=== PATIENT | female | born 1970 | race Caucasian/White ===

== ENCOUNTER 2016-07-30 11:40 | Emergency (ER) | payer SELFPAY ==
--- NOTE | 2016-07-30 12:22 | ER Document Report ---
HPI - HPI Patient complains to provider of: right wrist pain Onset: Other - one month Onset/Duration: Persistent Quality of pain: Achy Severity: Moderate Pain Level: 3 Context: Patient presents to the emergency department with complaints of right wrist pain for the past month. She denies trauma. She is right hand dominant. She denies other symptoms such as fever vomiting diarrhea. Patient also has high blood pressure 209/93. Patient reports she does not believe in taking medications. She reports she's been told by numerous providers that she has high blood pressure but she will not take medications. Patient also reports she's been told she is a diabetic but she doesn't believe that either. Patient has a dark mole on the right side of her face on her cheek. Patient reports change in shape and color within the last 2 years but she is not interested in talking about that either. She reports she's taken Tylenol for her wrist pain and nothing helps. Associated Symptoms: None Exacerbated by: Denies Relieved by: Denies Similar symptoms previously: No Recently seen / treated by doctor: No - REPRODUCTIVE Reproductive: DENIES: : Past Medical History - General Information source: Patient Last Menstrual Period: 07/26/16 - Social History Smoking Status: Current Every Day Smoker Cigarette use (# per day): Yes - 2 ppd Chew tobacco use (# tins/day): No Frequency of alcohol use: None Drug Abuse: None Family History: Arthritis, CAD, CVA, DM, Hyperlipidemia, Hypertension, Malignancy, Thyroid Disfunction - Past Medical History Cardiac Medical History: Reports: Hx Hypertension - no meds states she has medicines but refuses to take them Pulmonary Medical History: Reports: Hx Asthma, Hx Bronchitis, Hx Pneumonia Endocrine Medical History: Reports: Hx Diabetes Mellitus Type 2 - no meds Musculoskeltal Medical History: Reports Hx Musculoskeletal Deformity, Reports Hx Musculoskeletal Trauma Past Surgical History: Reports: Hx Cholecystectomy - Immunizations Immunizations up to date: Yes Hx Diphtheria, Pertussis, Tetanus Vaccination: Yes Vertical Provider Document - CONSTITUTIONAL Agree With Documented VS: Yes Exam Limitations: No Limitations General Appearance: WD/WN, No Apparent Distress - INFECTION CONTROL TRAVEL OUTSIDE OF THE [place] IN LAST 30 DAYS: No - HEENT HEENT: Atraumatic, Normocephalic - NECK Neck: Normal Inspection, Supple. negative: Lymphadenopathy-Left, Lymphadenopathy-Right - RESPIRATORY Respiratory: Breath Sounds Normal, No Respiratory Distress O2 Sat by Pulse Oximetry: 96 - CARDIOVASCULAR Cardiovascular: Regular Rate - MUSCULOSKELETAL/EXTREMETIES Musculoskeletal/Extremeties: MAEW, FROM, Tender - right wrist ttp, no obvious deformity no swelling good radial pulse good cap refill full range of motion - neg tinels - NEURO Level of Consciousness: Awake, Alert, Appropriate Motor/Sensory: No Motor Deficit - DERM Integumentary: Warm, Dry Adult Front & Back Diagram: 1 - c/o pain Course - Re-evaluation Re-evalutation: 07/30/16 12:23 Patient educated on risk of high blood pressure. She is not interested in talking about it. Will give her written information on discharge - Vital Signs Vital signs: Temp Pulse Resp BP Pulse Ox 97.7 F 91 20 209/93 H 96 07/30/16 12:05 07/30/16 12:05 07/30/16 12:05 07/30/16 12:05 07/30/16 12:05 - Diagnostic Test Radiology reviewed: Image reviewed, Reports reviewed - neg Discharge - Discharge Clinical Impression: elevated blood pressure Wrist pain Qualifiers: Laterality: right Qualified Code(s): M25.531 - Pain in right wrist Disposition: HOME, SELF-CARE Instructions: High Blood Pressure ([facility]), Use of Ldxs-Tmq-Ginfmzu Ibuprofen ([facility] ), Ice Packs ([facility]), [facility] Additional Instructions: *You have been evaluated for wrist pain, elevated blood pressure *Take ibuprofen as indicated *Rest/Ice/Elevate the wrist *Follow up with orthopedics for continued wrist pain-call for an appointment *Follow up with a provider within one week to discuss and evaluate your high blood pressure, recheck your wrist *Return to ED for worsening condition, changes, needs Forms: Elevated Blood Pressure, Smoking Cessation Education
[2016-07-30 13:21] VITALS: BP 189/95
== END 2016-07-30 13:00 | disposition home or self-care (01) ==
LOC: ER 11:40
DX: M25.531 Pain in right wrist (principal); I10 Essential (primary) hypertension; F17.210 Nicotine dependence, cigarettes, uncomplicated; E11.9 Type 2 diabetes mellitus without complications; Z90.49 Acquired absence of other specified parts of digestive tract
CPT/HCPCS: 99283

== ENCOUNTER 2016-11-05 11:15 | Observation (INO) | payer SELFPAY ==
[2016-11-05] MEDS ORDERED: ASPIRIN 325 MG TABLET PO ONE (12:03)
--- NOTE | 2016-11-05 12:05 | ER Document Report ---
ED Medical Screen (RME) - General Chief Complaint: Chest Pain Stated Complaint: CHEST PAIN Time Seen by Provider: 11/05/16 12:02 Mode of Arrival: Ambulatory Information source: Patient - Pt. with onset of CP yesterday and continuing into today with numbness in L arm TRAVEL OUTSIDE OF THE [place] IN LAST 30 DAYS: No - Related Data Allergies/Adverse Reactions: No Known Allergies Allergy (Verified 11/05/16 11:37) Past Medical History - Past Medical History Cardiac Medical History: Reports: Hx Hypertension - no meds states she has medicines but refuses to take them Pulmonary Medical History: Reports: Hx Asthma, Hx Bronchitis, Hx Pneumonia Endocrine Medical History: Reports: Hx Diabetes Mellitus Type 2 - no meds Renal/ Medical History: Denies: Hx Peritoneal Dialysis Musculoskeltal Medical History: Reports Hx Musculoskeletal Deformity, Reports Hx Musculoskeletal Trauma Past Surgical History: Reports: Hx Cholecystectomy - Immunizations Immunizations up to date: Yes Hx Diphtheria, Pertussis, Tetanus Vaccination: Yes Physical Exam - Vital signs Vitals: Temp Pulse Resp BP Pulse Ox 98.2 F 107 H 20 177/90 H 95 11/05/16 11:37 11/05/16 11:37 11/05/16 11:37 11/05/16 11:37 11/05/16 11:37 Course - Vital Signs Vital signs: Temp Pulse Resp BP Pulse Ox 98.2 F 107 H 20 177/90 H 95 11/05/16 11:37 11/05/16 11:37 11/05/16 11:37 11/05/16 11:37 11/05/16 11:37
[2016-11-05 12:52] LABS: ABSOLUTE BASOPHILS # (AUTO) 0.1 10^3/uL (0.0-0.2); ABSOLUTE EOSINOPHILS # (AUTO) 0.1 10^3/uL (0.0-0.6); ABSOLUTE LYMPHOCYTES (AUTO) 2.3 10^3/uL (0.5-4.7); ABSOLUTE MONOCYTES (AUTO) 0.7 10^3/uL (0.1-1.4); ABSOLUTE NEUT (AUTO) 7.9 10^3/uL (1.7-8.2); BASOPHILS % (AUTO) 0.8 % (0-2); HEMATOCRIT 43.8 % (36.0-47.0); HEMOGLOBIN 15.2 g/dL (12.0-15.5); HGB HCT DIFFERENCE 1.8; LYMPHOCYTES % (AUTO) 20.6 % (13-45); MEAN CORPUSCULAR HEMOGLOBIN 28.6 pg (27.0-33.4); MEAN CORPUSCULAR HGB CONC 34.8 g/dL (32.0-36.0); MEAN CORPUSCULAR VOLUME 82 fl (80-97); MONOCYTES % (AUTO) 6.4 % (3-13); RED BLOOD COUNT 5.32 10^6/uL (3.72-5.28); SEGMENTED NEUTROPHILS % (AUTO) 71.2 % (42-78); WHITE BLOOD COUNT 11.1 10^3/uL (4.0-10.5)
[2016-11-05 13:07] LABS: ALANINE AMINOTRANSFERASE 38 U/L (9-52); ALBUMIN 4.3 g/dL (3.5-5.0); ALKALINE PHOSPHATASE 75 U/L (38-126); ANION GAP 14 (5-19); ASPARTATE AMINO TRANSFERASE 19 U/L (14-36); BILIRUBIN,DIRECT 0.3 mg/dL (0.0-0.4); BILIRUBIN,TOTAL 0.8 mg/dL (0.2-1.3); BLOOD UREA NITROGEN 5 mg/dL (7-20); CALCIUM 9.8 mg/dL (8.4-10.2); CARBON DIOXIDE 24 mmol/L (22-30); CHLORIDE 100 mmol/L (98-107); CREATINE KINASE 28 U/L (30-135); CREATININE RESULT 0.49 mg/dL (0.52-1.25); GLUCOSE 348 mg/dL (75-110); POTASSIUM 4.3 mmol/L (3.6-5.0); SODIUM 138.3 mmol/L (137-145); TOTAL PROTEIN 7.3 g/dL (6.3-8.2)
[2016-11-05 13:29] LABS: TROPONIN I < 0.012 ng/mL
--- NOTE | 2016-11-05 15:20 | ER Document Report ---
ED General - General Mode of Arrival: Ambulatory Information source: Patient TRAVEL OUTSIDE OF THE [place] IN LAST 30 DAYS: No - HPI Patient complains to provider of: Chest Pain Onset: Yesterday Onset/Duration: Sudden, Intermittent Associated symptoms: Chest pain, Other - numbness and tingling in left arm. denies: Shortness of breath <KELLY AMOS - Last Filed: 11/05/16 16:22> <JUANITO JIMÉNEZ - Last Filed: 11/05/16 20:03> - General Chief Complaint: Chest Pain Stated Complaint: CHEST PAIN Time Seen by Provider: 11/05/16 12:02 Notes: Patient is a 46-year-old female presenting to the emergency department with concerns of intermittent chest pain that began yesterday afternoon. Patient states that the pain normally lasts approximately 2-5 minutes, and the pain comes back approximately every 15 minutes. Patient also states she is experiencing numbness and tingling down her left arm into her fingertips. Patient reports family history of heart disease. Patient denies any difficulty breathing or any other symptoms at this time. Patient states that she is given aspirin when she first arrived here to the emergency department, but she has not received any nitroglycerin. Patient states that she last ate at 0830 today and it was only one piece of toast. Patient denies any prior diagnosis of diabetes, but states that her blood sugar has been elevated in the past. (KELLY AMOS) - Related Data Allergies/Adverse Reactions: No Known Allergies Allergy (Verified 11/05/16 11:37) Home Medications: Current Home Medications No Home Medications 11/05/16 [History] Past Medical History - General Information source: Patient, [facility] Records - Social History Smoking Status: Current Every Day Smoker Chew tobacco use (# tins/day): No Frequency of alcohol use: None Drug Abuse: None Family History: Arthritis, CAD, CVA, DM, Hyperlipidemia, Hypertension, Malignancy, Thyroid Disfunction Patient has suicidal ideation: No Patient has homicidal ideation: No - Past Medical History Cardiac Medical History: Reports: Hx Hypertension - no meds states she has medicines but refuses to take them Pulmonary Medical History: Reports: Hx Asthma, Hx Bronchitis, Hx Pneumonia Endocrine Medical History: Reports: Hx Diabetes Mellitus Type 2 - no meds Renal/ Medical History: Denies: Hx Peritoneal Dialysis Musculoskeltal Medical History: Reports Hx Musculoskeletal Deformity, Reports Hx Musculoskeletal Trauma Past Surgical History: Reports: Hx Cholecystectomy - Immunizations Immunizations up to date: Yes Hx Diphtheria, Pertussis, Tetanus Vaccination: Yes <KELLY AMOS - Last Filed: 11/05/16 16:22> Review of Systems - Review of Systems Constitutional: No symptoms reported EENT: No symptoms reported Cardiovascular: See HPI, Chest pain Respiratory: No symptoms reported. denies: Short of breath Gastrointestinal: No symptoms reported Genitourinary: No symptoms reported Female Genitourinary: No symptoms reported Musculoskeletal: No symptoms reported Skin: No symptoms reported Hematologic/Lymphatic: No symptoms reported Neurological/Psychological: See HPI, Numbness - Left arm, Tingling - Left fingertips -: Yes All other systems reviewed and negative <KELLY AMOS - Last Filed: 11/05/16 16:22> Physical Exam <KELLY AMOS - Last Filed: 11/05/16 16:22> <JUANITO JIMÉNEZ - Last Filed: 11/05/16 20:03> - Vital signs Vitals: Temp Pulse Resp BP Pulse Ox 98.2 F 107 H 20 177/90 H 95 11/05/16 11:37 11/05/16 11:37 11/05/16 11:37 11/05/16 11:37 11/05/16 11:37 - Notes Notes: GENERAL: Alert, interacts well. No acute distress. HEAD: Normocephalic, atraumatic. EYES: Pupils equal, round, and reactive to light. Extraocular movements intact. ENT: Oral mucosa moist, tongue midline. NECK: Full range of motion. Supple. Trachea midline. LUNGS: Clear to auscultation bilaterally, no wheezes, rales, or rhonchi. No respiratory distress. HEART: Regular rate and rhythm. No murmurs, gallops, or rubs. ABDOMEN: Soft, non-tender. Non-distended. Bowel sounds present in all 4 quadrants. EXTREMITIES: Moves all 4 extremities spontaneously. No edema, radial and dorsalis pedis pulses 2/4 bilaterally. No cyanosis. NEUROLOGICAL: Alert and oriented x3. Normal speech. PSYCH: Normal affect, normal mood. SKIN: Warm, dry, normal turgor. Black and blue raised lesion with irregular margins at the right mandibular angle. (KELLY AMOS) Course - Laboratory Result Diagrams: 11/05/16 12:30 11/05/16 12:30 <KELLY AMOS - Last Filed: 11/05/16 16:22> - Laboratory Result Diagrams: 11/05/16 12:30 11/05/16 12:30 <JUANITO JIMÉNEZ - Last Filed: 11/05/16 20:03> - Re-evaluation Re-evalutation: 11/05/16 16:25 provider discussed concern for malignancy of the lesion on the right cheek and recommendation for outpatient excision and pathology. (KELLY AMOS) 11/05/16 15:22 CBC shows minimal leukocytosis of 11.1, CMP grossly unremarkable with the exception of significantly elevated blood sugar at 348, chest x-ray shows no acute process. EKG is nonischemic. 11/05/16 20:03 Hospitalist who agrees with accepting patient to their service in observation status for chest pain rule out. Initial cardiac enzymes negative. (JUANITO JIMÉNEZ ) - Vital Signs Vital signs: Temp Pulse Resp BP Pulse Ox 97.7 F 99 21 H 182/99 H 100 11/05/16 19:18 11/05/16 19:18 11/05/16 19:18 11/05/16 19:18 11/05/16 19:18 - Laboratory Laboratory results interpreted by me: 11/05/16 11/05/16 12:30 12:30 WBC 11.1 H RBC 5.32 H BUN 5 L Creatinine 0.49 L Glucose 348 H Creatine Kinase 28 L - EKG Interpretation by Me Additional EKG results interpreted by me: 11/05/16 15:23 EKG shows sinus tachycardia at a rate of 101, right axis deviation, normal intervals, no ST segment elevations or depressions, no T-wave inversions per my interpretation. (JUANITO JIMÉNEZ) Discharge <KELLY AMOS - Last Filed: 11/05/16 16:22> - Discharge Admitting Provider: Hospitalist - [facility] Unit Admitted: Telemetry <JUANITO JIMÉNEZ - Last Filed: 11/05/16 20:03> - Discharge Clinical Impression: Chest pain, rule out acute myocardial infarction, Hyperglycemia Hypertension Qualifiers: Hypertension type: essential hypertension Qualified Code(s): I10 - Essential ( primary) hypertension Scribe Attestation: 11/05/16 20:03 I personally performed the services described in the documentation, reviewed and edited the documentation which was dictated to the scribe in my presence, and it accurately records my words and actions. (JUANITO JIMÉNEZ) Scribe Documentation - Scribe Written by Milee:: Ap Frey, 11/05/2016 1517 acting as scribe for :: Leticia <KELLY AMOS - Last Filed: 11/05/16 16:22>
[2016-11-05] MEDS ORDERED: NITROGLYCERIN 0.4 MG/TAB 25 TAB/BOTTLE SL PRN ×2 (15:22→15:39)
[2016-11-05] MEDS ORDERED: ONDANSETRON HCL INJ/PF 4 MG/2 ML SDV IV PRN (15:39)
[2016-11-05] MEDS ORDERED: TEMAZEPAM 15 MG CAPSULE PO PRN (15:39)
[2016-11-05] MEDS ORDERED: GLUCAGON,HUMAN RECOMB 1 MG INJ IM PRN (15:43)
[2016-11-05] MEDS ORDERED: DEXTROSE 50%-WATER 25 GM/50 ML DISP.SYRIN IV PRN ×2 (15:43)
[2016-11-05] MEDS ORDERED: DEXTROSE 40% GEL 15 GM TUBE PO PRN ×2 (15:43)
[2016-11-05] MEDS: LANSOPRAZOLE 30 MG TAB.RAP.DR PO SCH (16:32)
--- NOTE | 2016-11-05 17:47 | EKG REPORT ---
SEVERITY:- ABNORMAL ECG - SINUS TACHYCARDIA LOW VOLTAGE WITH RIGHT AXIS DEVIATION CONSIDER ANTEROSEPTAL INFARCT : Confirmed by: Farzana Wood MD 05-Nov-2016 17:46:02
[2016-11-05] MEDS ORDERED: NICOTINE 21 MG/24 HR PATCH.TD24 TD ONE (19:45)
[2016-11-05] MEDS: INSULIN LISPRO 100 UNIT/ML 3 ML VIAL SUBCUT PRN (21:16)
[2016-11-06] MEDS: LANSOPRAZOLE 30 MG TAB.RAP.DR PO SCH (05:19)
[2016-11-06 06:58] LABS: CHOLESTEROL 259.86 mg/dL (0-200); Direct HDL 32 mg/dL (>40)
[2016-11-06 07:54] LABS: DIRECT LDL < 30 mg/dL (<100); TRIGLYCERIDES 1751 mg/dL (<150)
[2016-11-06 08:40] VITALS: BP 147/85
[2016-11-06] MEDS: INSULIN LISPRO 100 UNIT/ML 3 ML VIAL SUBCUT PRN (08:44)
--- NOTE | 2016-11-06 09:48 | PDOC DISCHARGE SUMMARY ---
General - Admit/Disc Date/PCP Admission Date/Primary Care Provider: 11/05/16 15:39 Discharge Date: 11/06/16 - Discharge Diagnosis (1) Chest pain, rule out acute myocardial infarction Is this a current diagnosis for this admission?: YesSummary: Ruled out for acute coronary syndrome, most likely musculoskeletal in origin. (2) Hyperglycemia Is this a current diagnosis for this admission?: YesSummary: HbA1c is 11.3. Patient has known history of diabetes mellitus type 2, diagnosed several years ago. She states she did have a meter she was prescribed medication however she never took it. She states, "I do not like to take medication to have many side effects." Patient was counseled on the untoward effects of untreated diabetes mellitus type 2. She is agreeable now to start taking metformin. We will [facility], to assist her with obtaining medication due to no insurance. She was [facility] for diabetic education. (3) Hypertension Is this a current diagnosis for this admission?: YesSummary: Normotensive (4) Hypertriglyceridemia without hypercholesterolemia Is this a current diagnosis for this admission?: YesSummary: She is agreeable to start taking medication for diabetes. She will follow-up with [facility] regarding her high triglycerides. She was counseled on dietary modifications needed. - Additional Information Resuscitation Status: Full Code Discharge Diet: Diabetic Discharge Activity: Activity As Tolerated, Balance Activity w/Rest Home Medications: Metformin HCl [Glucophage] 500 mg PO BID #60 tablet 11/06/16 History of Present Illness Patient complains of: Left arm and midsternal chest pain History of Present Illness: ARTEMIO SMITH is a 46 year old female who presents to [facility] emergency department this afternoon, with complaints of left arm numbness and tingling radiating up to left sided chest discomfort. She states the pain comes on typically at rest. She denies any associated nausea, vomiting, diaphoresis, or dyspnea. She states the pain never occurs with exertion. She denies any prior history of coronary artery disease or chest pains. She does smoke 11/2-3 packs per day, and has for the last 25 years. She she has a family history of premature coronary artery disease in her father who had MIs in his 40s. Father with pancreatic cancer at the age of 48. Low Hospital Course Hospital Course: Patient was admitted to the telemetry floor on observation. She had serial troponins drawn every 6 hours which were all negative. She had no further episodes of pain. Chemstrips continue to show high glucose readings. HbA1c is morning was 11.3. Patient was counseled on the untoward effects of uncontrolled diabetes mellitus. She is now willing to start taking medication and following her glucose. She is agreeable to follow-up with the [facility] and [facility] for diabetic education. Physical Exam Vital Signs: Temp Pulse Resp BP Pulse Ox 97.7 F 92 16 147/85 H 97 11/06/16 09:24 11/06/16 09:24 11/06/16 09:24 11/06/16 09:24 11/06/16 09:24 Intake & Output 11/05/16 11/06/16 11/07/16 06:59 06:59 06:59 Intake Total 240 120 Balance 240 120 Weight 71.9 kg General appearance: PRESENT: no acute distress, well-developed, well-nourished Head exam: PRESENT: atraumatic, normocephalic Eye exam: PRESENT: conjunctiva pink, EOMI, PERRLA. ABSENT: scleral icterus Ear exam: PRESENT: normal external ear exam Mouth exam: PRESENT: moist, tongue midline Teeth exam: PRESENT: edentulous Neck exam: ABSENT: carotid bruit, JVD, lymphadenopathy, thyromegaly Respiratory exam: PRESENT: clear to auscultation markie. ABSENT: rales, rhonchi, wheezes Cardiovascular exam: PRESENT: RRR. ABSENT: diastolic murmur, rubs, systolic murmur Pulses: PRESENT: normal dorsalis pedis pul Vascular exam: PRESENT: normal capillary refill GI/Abdominal exam: PRESENT: normal bowel sounds, soft. ABSENT: distended, guarding, mass, organolmegaly, rebound, tenderness Rectal exam: PRESENT: deferred Neurological exam: PRESENT: alert, awake, oriented to person, oriented to place , oriented to time, oriented to situation, CN II-XII grossly intact. ABSENT: motor sensory deficit Psychiatric exam: PRESENT: appropriate affect, normal mood. ABSENT: homicidal ideation, suicidal ideation Skin exam: PRESENT: dry, intact, warm. ABSENT: cyanosis, rash Results Laboratory Results: 11/06/16 06:30 Triglycerides 1751 H Cholesterol 259.86 H LDL Cholesterol Direct < 30 VLDL Cholesterol UNABLE TO CALCULATE HDL Cholesterol 32 L 11/05/16 11/06/16 11/06/16 18:05 00:05 06:30 Troponin I < 0.012 < 0.012 < 0.012 Impressions: Chest X-Ray 11/05/16 12:03 IMPRESSION: NO SIGNIFICANT RADIOGRAPHIC FINDING IN THE CHEST. Qualifiers PATEINT BEING DISCHARGED WITH ANY OF THE FOLLOWING DIAGNOSIS?: No Plan Discharge Plan: Home with significant other Time Spent: Less than 30 Minutes
[2016-11-06] MEDS ORDERED: ASPIRIN 81 MG TABLET, CHEWABLE PO SCH (10:00)
[2016-11-06] MEDS ORDERED: NICOTINE 21 MG/24 HR PATCH.TD24 TD SCH (18:00)
--- NOTE | 2016-11-10 14:20 | PDOC H&P ---
History of Present Illness Admission Date/PCP: 11/05/16 15:54 Patient complains of: Left arm and midsternal chest pain over the last week History of Present Illness: ARTEMIO SMITH is a 46 year old female who presents to [facility] emergency department this afternoon, with complaints of left arm numbness and tingling radiating up to left sided chest discomfort. She states the pain comes on typically at rest. She denies any associated nausea, vomiting, diaphoresis, or dyspnea. She states the pain never occurs with exertion. She denies any prior history of coronary artery disease or chest pains. She does smoke 11/2-3 packs per day, and has for the last 25 years. She she has a family history of premature coronary artery disease in her father who had MIs in his 40s. Father with pancreatic cancer at the age of 48. Low Past Medical History Cardiac Medical History: Reports: Hypertension - no meds states she has medicines but refuses to take them Pulmonary Medical History: Reports: Asthma, Bronchitis, Pneumonia EENT Medical History: Reports: None Neurological Medical History: Reports: None Endocrine Medical History: Reports: Diabetes Mellitus Type 2 - no meds Renal/ Medical History: Reports: None Malignancy Medical History: Reports: None - Return in GI Medical History: Reports: None Musculoskeltal Medical History: Reports: None Skin Medical History: Reports: None Psychiatric Medical History: Reports: Tobacco Dependency Traumatic Medical History: Reports: None Hematology: Reports: None Infectious Medical History: Reports: None Past Surgical History Past Surgical History: Reports: Cholecystectomy Social History Information Source: Patient Lives with: Spouse/Significant other Smoking Status: Current Every Day Smoker Cigarettes Packs Per Day: 3 Number of Years Smokin Last Time Smoked: Today Frequency of Alcohol Use: Rare Hx Recreational Drug Use: No Drugs: None - Advance Directive Resuscitation Status: Full Code Surrogate healthcare decision maker:: Significant number Family History Family History: Arthritis, CAD, CVA, DM, Hyperlipidemia, Hypertension, Malignancy, Thyroid Disfunction Parental Family History Reviewed: Yes Children Family History Reviewed: Yes Sibling(s) Family History Reviewed.: Yes Medication/Allergy Home Medications: No Home Medications 11/05/16 Allergies/Adverse Reactions: No Known Allergies Allergy (Verified 11/05/16 11:37) Review of Systems Constitutional: ABSENT: chills, fever(s), headache(s), weight gain, weight loss Eyes: ABSENT: visual disturbances Ears: ABSENT: hearing changes Cardiovascular: PRESENT: chest pain. ABSENT: dyspnea on exertion, edema, orthropnea, palpitations Respiratory: ABSENT: cough, hemoptysis Gastrointestinal: ABSENT: abdominal pain, constipation, diarrhea, hematemesis, hematochezia, nausea, vomiting Genitourinary: ABSENT: dysuria, hematuria Musculoskeletal: ABSENT: joint swelling Integumentary: ABSENT: rash, wounds Neurological: ABSENT: abnormal gait, abnormal speech, confusion, dizziness, focal weakness, syncope Psychiatric: ABSENT: anxiety, depression, homidical ideation, suicidal ideation Endocrine: ABSENT: cold intolerance, heat intolerance, polydipsia, polyuria Hematologic/Lymphatic: ABSENT: easy bleeding, easy bruising Physical Exam Vital Signs: Temp Pulse Resp BP Pulse Ox 98.2 F 107 H 17 163/99 H 97 11/05/16 11:37 11/05/16 11:37 11/05/16 16:01 11/05/16 16:01 11/05/16 16:01 General appearance: PRESENT: no acute distress, well-developed, well-nourished Ear exam: PRESENT: normal external ear exam Mouth exam: PRESENT: moist, tongue midline Neck exam: ABSENT: carotid bruit, JVD, lymphadenopathy, thyromegaly Respiratory exam: PRESENT: clear to auscultation markie. ABSENT: rales, rhonchi, wheezes Cardiovascular exam: PRESENT: RRR. ABSENT: diastolic murmur, rubs, systolic murmur Pulses: PRESENT: normal dorsalis pedis pul Vascular exam: PRESENT: normal capillary refill GI/Abdominal exam: PRESENT: normal bowel sounds, soft. ABSENT: distended, guarding, mass, organolmegaly, rebound, tenderness Rectal exam: PRESENT: deferred Extremities exam: PRESENT: full ROM. ABSENT: calf tenderness, clubbing, pedal edema Neurological exam: PRESENT: alert - People my exam, awake, oriented to person, oriented to place, oriented to time, oriented to situation, CN II-XII grossly intact. ABSENT: motor sensory deficit Psychiatric exam: PRESENT: appropriate affect, normal mood. ABSENT: homicidal ideation, suicidal ideation Skin exam: PRESENT: dry, intact, warm. ABSENT: cyanosis, rash Results Impressions: Chest X-Ray 11/05/16 12:03 IMPRESSION: NO SIGNIFICANT RADIOGRAPHIC FINDING IN THE CHEST. Assessment & Plan - Diagnosis (1) Chest pain, rule out acute myocardial infarction Is this a current diagnosis for this admission?: YesPlan: We will admit the patient to telemetry, do serial troponins overnight. Pain is atypical for cardiac origin and more likely musculoskeletal in origin (2) Hyperglycemia Is this a current diagnosis for this admission?: YesPlan: Patient has a blood sugar of 350. She denies any history of diabetes. She does not routinely seek medical attention. We will obtain HbA1c in the morning (3) Hypertension Qualifiers: Hypertension type: essential hypertension Qualified Code(s): I10 - Essential (primary) hypertension Is this a current diagnosis for this admission?: YesPlan: Continue current medications - Time Time Spent: 50 to 70 Minutes Critical Time spent with patient: 25-34 minutes Medications reviewed and adjusted accordingly: Yes Anticipated discharge: Home Within: within 24 hours
== END 2016-11-06 09:54 | disposition home or self-care (01) ==
LOC: ER 11:15 → EH 15:39 → UNDOADMOB 15:54 → 5 18:05
DX: R07.89 Other chest pain (principal); E11.65 Type 2 diabetes mellitus with hyperglycemia; I10 Essential (primary) hypertension; Z91.14 Patient's other noncompliance with medication regimen; E78.1 Pure hyperglyceridemia; R20.0 Anesthesia of skin; R20.2 Paresthesia of skin; L98.8 Other specified disorders of the skin and subcutaneous tissue; D72.829 Elevated white blood cell count, unspecified; R00.0 Tachycardia, unspecified; F17.210 Nicotine dependence, cigarettes, uncomplicated; Z82.49 Family history of ischemic heart disease and other diseases of the circulatory system; Z80.8 Family history of malignant neoplasm of other organs or systems; Z82.3 Family history of stroke; Z90.49 Acquired absence of other specified parts of digestive tract
CPT/HCPCS: 93005; 99285; 36415 ×2; 82553; 82962 ×2; 82550; 83690; 84703; 85025; 80053; 84484 ×2; 83036; 80061; 71020; 93010; G0378 ×3; J1815 ×2; J3490

== ENCOUNTER → 2016-12-01 | Outpatient (CLI) | payer OTHER ==
[2016-12-01 09:43] LABS: CHOLESTEROL 170.65 mg/dL (0-200); Direct HDL 35 mg/dL (>40); TRIGLYCERIDES 308 mg/dL (<150)
[2016-12-01 09:54] LABS: DIRECT LDL 64 mg/dL (<100)
[2016-12-01 09:59] LABS: VLDL CHOLESTEROL 61.6 mg/dL (10-31)
== END ==
LOC: CCC 08:09
DX: E11.9 Type 2 diabetes mellitus without complications (principal); E78.1 Pure hyperglyceridemia
CPT/HCPCS: 36415; 80061; 82043

== ENCOUNTER → 2017-05-17 | Outpatient (CLI) | payer OTHER | LOC: CCC 12:36 | DX: E11.9 Type 2 diabetes mellitus without complications (principal) | CPT/HCPCS: 36415; 83036 ==

== ENCOUNTER 2017-09-06 08:12 | Emergency (ER) | payer SELFPAY ==
[2017-09-06] MEDS ORDERED: NORMAL SALINE 1000 ML 1,000 ML IV PRN (08:38)
[2017-09-06 08:46] LABS: ABSOLUTE BASOPHILS # (AUTO) 0.1 10^3/uL (0.0-0.2); ABSOLUTE EOSINOPHILS # (AUTO) 0.1 10^3/uL (0.0-0.6); ABSOLUTE LYMPHOCYTES (AUTO) 1.5 10^3/uL (0.5-4.7); ABSOLUTE MONOCYTES (AUTO) 0.6 10^3/uL (0.1-1.4); BASOPHILS % (AUTO) 1.4 % (0-2); EOSINOPHILS % (AUTO) 1.3 % (0-6); HEMATOCRIT 45.1 % (36.0-47.0); HEMOGLOBIN 15.7 g/dL (12.0-15.5); LYMPHOCYTES % (AUTO) 18.5 % (13-45); MEAN CORPUSCULAR HEMOGLOBIN 29.8 pg (27.0-33.4); MEAN CORPUSCULAR HGB CONC 34.9 g/dL (32.0-36.0); MEAN CORPUSCULAR VOLUME 86 fl (80-97); MONOCYTES % (AUTO) 7.1 % (3-13); PLATELET COUNT 274 10^3/uL (150-450); RED BLOOD COUNT 5.28 10^6/uL (3.72-5.28); RED CELL DISTRIBUTION WIDTH 13.4 % (11.5-14.0); SEGMENTED NEUTROPHILS % (AUTO) 71.7 % (42-78); TOTAL CELLS COUNTED % (AUTO) 100 %; WHITE BLOOD COUNT 8.3 10^3/uL (4.0-10.5)
[2017-09-06 09:05] LABS: ALANINE AMINOTRANSFERASE 42 U/L (9-52); ALKALINE PHOSPHATASE 69 U/L (38-126); ANION GAP 12 (5-19); ASPARTATE AMINO TRANSFERASE 25 U/L (14-36); BILIRUBIN,DIRECT 0.4 mg/dL (0.0-0.4); BILIRUBIN,TOTAL 0.9 mg/dL (0.2-1.3); BLOOD UREA NITROGEN 9 mg/dL (7-20); CALCIUM 9.5 mg/dL (8.4-10.2); CARBON DIOXIDE 26 mmol/L (22-30); CHLORIDE 97 mmol/L (98-107); SODIUM 135.4 mmol/L (137-145); TOTAL PROTEIN 6.8 g/dL (6.3-8.2)
[2017-09-06 09:10] LABS: VENOUS BLOOD BASE EXCESS -2.2 mmol/L; VENOUS BLOOD HCO3 23.5 mmol/L (20-32); VENOUS BLOOD PCO2 43.3 mmHg (35-63); VENOUS BLOOD PH 7.35 (7.30-7.42)
--- NOTE | 2017-09-06 09:19 | ER Document Report ---
ED Blood Sugar Problem - General Chief Complaint: High Blood Sugar Stated Complaint: BLOOD SUGAR CONCERNS Time Seen by Provider: 09/06/17 08:37 Notes: Patient is a 47-year-old female, past medical history NIDDM, hypertension, presents after she was told to go the ER from the [facility] yesterday because her sugar was in the 500's. Patient said she used to be on metformin, but did not like the way that it caused too much diarrhea for her and she stopped. She is having some polyuria and polydipsia. Patient is drinking a 32 ounce Trevino's Diet Coke in the emergency room. She denies fevers, chest pain, shortness of breath, dysuria, flank pain, abdominal pain, nausea, vomiting or headache. TRAVEL OUTSIDE OF THE [place] IN LAST 30 DAYS: No - Related Data Allergies/Adverse Reactions: No Known Allergies Allergy (Verified 11/05/16 11:37) Past Medical History - General Information source: Patient - Social History Smoking Status: Current Every Day Smoker Frequency of alcohol use: None Drug Abuse: None Family History: Arthritis, CAD, CVA, DM, Hyperlipidemia, Hypertension, Malignancy, Thyroid Disfunction Patient has suicidal ideation: No Patient has homicidal ideation: No - Past Medical History Cardiac Medical History: Reports: Hx Hypertension - no meds states she has medicines but refuses to take them Denies: Hx Congestive Heart Failure, Hx Heart Attack Pulmonary Medical History: Reports: Hx Asthma, Hx Bronchitis, Hx Pneumonia Denies: Hx COPD, Hx Tuberculosis Neurological Medical History: Denies: Hx Seizures Endocrine Medical History: Reports: Hx Diabetes Mellitus Type 2 - no meds, meds "make me sick" Renal/ Medical History: Denies: Hx End Stage Renal Disease, Hx Kidney Stones, Hx Peritoneal Dialysis GI Medical History: Denies: Hx Cirrhosis, Hx Gastroesophageal Reflux Disease, Hx Ulcer Musculoskeltal Medical History: Denies Hx Arthritis, Denies Hx Multiple Sclerosis, Reports Hx Musculoskeletal Deformity, Reports Hx Musculoskeletal Trauma Psychiatric Medical History: Reports: Hx Depression Denies: Hx Bipolar Disorder, Hx Schizophrenia Past Surgical History: Reports: Hx Cholecystectomy - Immunizations Immunizations up to date: Yes Hx Diphtheria, Pertussis, Tetanus Vaccination: Yes Review of Systems - Review of Systems Notes: REVIEW OF SYSTEMS: CONSTITUTIONAL: -fevers, -chills EENT: -eye pain, -difficulty swallowing, -nasal congestion CARDIOVASCULAR: -chest pain, -syncope. RESPIRATORY: -cough, -SOB GASTROINTESTINAL: -abdominal pain, -nausea, -vomiting, -diarrhea GENITOURINARY: -dysuria, -hematuria MUSCULOSKELETAL: -back pain, -neck pain SKIN: -rash or skin lesions. HEMATOLOGIC: -easy bruising or bleeding. LYMPHATIC: -swollen, enlarged glands. NEUROLOGICAL: -altered mental status or loss of consciousness, -headache, - neurologic symptoms PSYCHIATRIC: -anxiety, -depression. ALL OTHER SYSTEMS REVIEWED AND NEGATIVE. Physical Exam - Vital signs Vitals: Temp Pulse Resp BP Pulse Ox 97.8 F 109 H 18 149/78 H 94 09/06/17 08:16 09/06/17 08:16 09/06/17 08:16 09/06/17 08:16 09/06/17 08:16 - Notes Notes: PHYSICAL EXAMINATION: GENERAL: Well-appearing, well-nourished and in no acute distress. Drinking a 32 ounce Trevino's Diet Coke in her room. HEAD: Atraumatic, normocephalic. EYES: Pupils equal round and reactive to light, extraocular movements intact, sclera anicteric, conjunctiva are normal. ENT: nares patent, oropharynx clear without exudates. Moist mucous membranes. NECK: Normal range of motion, supple without lymphadenopathy LUNGS: Breath sounds clear to auscultation bilaterally and equal. No wheezes rales or rhonchi. HEART: Regular rate and rhythm without murmurs ABDOMEN: Soft, nontender, normoactive bowel sounds. No guarding, no rebound. No masses appreciated. EXTREMITIES: Normal range of motion, no pitting or edema. No cyanosis. NEUROLOGICAL: Cranial nerves grossly intact. Normal speech, normal gait. Normal sensory and motor exams. PSYCH: Normal mood, normal affect. SKIN: Warm, Dry, normal turgor, no rashes or lesions noted. Course - Re-evaluation Re-evalutation: Patient appears well and no signs of DKA or HHN on blood work or clinical exam. She has long-standing hyperglycemia after she could not tolerate the GI side effects from the metformin. Will switch her to glyburide and have [facility] to discuss further management of her diabetes, including the possibility of insulin. She understands. - Vital Signs Vital signs: Temp Pulse Resp BP Pulse Ox 97.8 F 109 H 18 149/78 H 94 09/06/17 08:16 09/06/17 08:16 09/06/17 08:16 09/06/17 08:16 09/06/17 08:16 - Laboratory Result Diagrams: 09/06/17 08:33 09/06/17 08:33 Laboratory results interpreted by me: 09/06/17 09/06/17 09/06/17 08:30 08:33 08:33 Hgb 15.7 H Sodium 135.4 L Chloride 97 L Glucose 535 H* POC Glucose 538 H* Hemoglobin A1c % Urine Glucose (UA) 09/06/17 09/06/17 08:33 09:09 Hgb Sodium Chloride Glucose POC Glucose Hemoglobin A1c % 11.4 H Urine Glucose (UA) >=500 H Discharge - Discharge Clinical Impression: Hyperglycemia Condition: Stable Disposition: HOME, SELF-CARE Additional Instructions: HYPERGLYCEMIA (HIGH BLOOD SUGAR): You have an abnormally high blood sugar. Not all high blood sugar requires long-term treatment. High blood sugar can be due to medications, , or the stress of illness. (These cases are "borderline diabetes.") If the doctor feels your high blood sugar might resolve with time, you may not require treatment now. It's very important that you follow through, to see if the blood sugar returns to normal levels. Uncontrolled high blood sugar leads to early heart disease, strokes, nerve damage, eye damage, and kidney damage. Call the physician if there is faintness, excess sleepiness, or very rapid breathing. DIABETES: You have an abnormally high blood sugar, suspicious for diabetes. Not all high blood sugar requires long-term treatment. High blood sugar can be due to medications, , or the stress of illness. (These cases are "borderline diabetes.") If the doctor feels your high blood sugar might get better with time, you may not require treatment now. It's very important that you follow through. Uncontrolled high blood sugar leads to early heart disease, strokes, nerve damage, eye damage, and kidney damage. All diabetics should follow a diet designed to control the blood sugar. Overweight diabetics should exercise regularly and lose weight. If this is not sufficient to control the blood sugar, pills or insulin shots are necessary. Younger people who develop diabetes almost always require insulin daily. Home testing of blood sugars or urine sugar is required. Diabetic teaching is available to help you figure insulin doses and monitor the blood sugar. Call the physician if there is faintness, excess sleepiness, or very rapid breathing. If hypoglycemia (LOW blood sugar) develops, symptoms are shakiness, weakness, sweating, and confusion. In this case, you should eat or drink something with sugar at once. ORAL HYPOGLYCEMIC MEDICATION: Oral hypoglycemics are medicines that lower blood sugar in diabetics. They are not effective for younger diabetics who require insulin. Some brands are tolbutamide, Orinase, glipizide, Glucotrol, glyburide, DiaBeta, Glynase, and Micronase. Some medications can increase or decrease the effect of Diabinese. Examples are Clofibrate (Atromid-S), phenylbutazone (Butazolidin), aspirin, sulfonamides, Coumadin, allopurinol (Zyloprim), probenecid (Benemid), acetazolamide (Diamox), beta blockers, steroids, estrogens, Indocin, INH, Levothyroxine, nicotinic acid, Diflucan, Dilantin, and thiazide diuretics. Be sure your doctor knows all the medicines you take, and talk to your doctor before making any changes in your medicines. If you develop symptoms of shakiness, sweats, and lightheadedness, your blood sugar may have gone too low. Eat or drink a small amount of sweet food. If symptoms don't go away, call your doctor. FOLLOW-UP CARE: If you have been referred to a physician for follow-up care, call the physician s office for an appointment as you were instructed or within the next two days. If you experience worsening or a significant change in your symptoms, notify the physician immediately or return to the Emergency Department at any time for re-evaluation. Prescriptions: Glyburide 5 mg PO QAM #30 tablet Forms: Elevated Blood Pressure Referrals: [facility] [Outside] - Follow up as needed
[2017-09-06 09:22] LABS: GLUCOSE 535 mg/dL (75-110)
[2017-09-06 09:32] LABS: APPEARANCE,URINE CLEAR; BILIRUBIN,URINE NEGATIVE (NEGATIVE); COLOR,URINE STRAW; GLUCOSE, URINE >=500 mg/dL (NEGATIVE); KETONES,URINE NEGATIVE (NEGATIVE); LEUKOCYTE ESTERASE,URINE NEGATIVE (NEGATIVE); NITRITE,URINE NEGATIVE (NEGATIVE); PROTEIN,URINE NEGATIVE (NEGATIVE); URINE SPECIFIC GRAVITY 1.032; UROBILINOGEN,URINE NEGATIVE mg/dL (<2.0)
[2017-09-06 10:45] VITALS: BP 149/95
== END 2017-09-06 10:33 | disposition home or self-care (01) ==
LOC: ER 08:12
DX: E11.65 Type 2 diabetes mellitus with hyperglycemia (principal); T38.3X6A Underdosing of insulin and oral hypoglycemic [antidiabetic] drugs, initial encounter; Z91.128 Patient's intentional underdosing of medication regimen for other reason; Z91.14 Patient's other noncompliance with medication regimen; I10 Essential (primary) hypertension; F17.200 Nicotine dependence, unspecified, uncomplicated; J45.909 Unspecified asthma, uncomplicated
CPT/HCPCS: 99283; 96360; 36415; 82962; 85025; 81025; 80053; 81001; 83036; 82803; J7030

== ENCOUNTER 2017-12-05 14:37 | Emergency (ER) | payer SELFPAY ==
[2017-12-05 15:17] LABS: ALANINE AMINOTRANSFERASE 25 U/L (9-52); ALBUMIN 4.7 g/dL (3.5-5.0); ALKALINE PHOSPHATASE 104 U/L (38-126); ANION GAP 15 (5-19); ASPARTATE AMINO TRANSFERASE 16 U/L (14-36); BILIRUBIN,DIRECT 0.6 mg/dL (0.0-0.4); BILIRUBIN,TOTAL 2.4 mg/dL (0.2-1.3); BLOOD UREA NITROGEN 6 mg/dL (7-20); CARBON DIOXIDE 31 mmol/L (22-30); CHLORIDE 92 mmol/L (98-107); GLUCOSE 341 mg/dL (75-110); POTASSIUM 3.7 mmol/L (3.6-5.0); TOTAL PROTEIN 7.8 g/dL (6.3-8.2)
[2017-12-05 15:22] LABS: HEMATOCRIT 44.6 % (36.0-47.0); HEMOGLOBIN 15.7 g/dL (12.0-15.5); MEAN CORPUSCULAR HEMOGLOBIN 28.7 pg (27.0-33.4); MEAN CORPUSCULAR HGB CONC 35.2 g/dL (32.0-36.0); MEAN CORPUSCULAR VOLUME 82 fl (80-97); PLATELET COUNT 367 10^3/uL (150-450); RED BLOOD COUNT 5.47 10^6/uL (3.72-5.28); RED CELL DISTRIBUTION WIDTH 13.4 % (11.5-14.0); WHITE BLOOD COUNT 17.6 10^3/uL (4.0-10.5)
[2017-12-05] MEDS ORDERED: NORMAL SALINE 1000 ML 1,000 ML IV ONE ×2 (15:27→16:23)
[2017-12-05 15:45] LABS: ABSOLUTE LYMPHOCYTES# (MANUAL) 1.1 10^3/uL (0.5-4.7); ABSOLUTE MONOCYTES # (MANUAL) 1.6 10^3/uL (0.1-1.4); BAND NEUTROPHILS % (MANUAL) 1 % (3-5); BASOPHILS % (MANUAL) 0 % (0-2); EOSINOPHILS % (MANUAL) 0 % (0-6); LYMPHOCYTES % (MANUAL) 6 % (13-45); MONOCYTES % (MANUAL) 9 % (3-13); SEGMENTED NEUTROPHILS % (MAN) 84 % (42-78); TOTAL CELLS COUNTED 100
[2017-12-05 15:53] LABS: PLATELET COMMENT ADEQUATE; PLATELET LARGE PRESENT
[2017-12-05 15:54] LABS: POLYCHROMASIA SLIGHT
[2017-12-05 15:58] LABS: LIPASE 41.8 U/L (23-300)
[2017-12-05 16:00] LABS: ALCOHOL < 10 mg/dL (NONE DETECTED)
[2017-12-05 16:03] LABS: APPEARANCE,URINE CLEAR; BILIRUBIN,URINE NEGATIVE (NEGATIVE); COLOR,URINE YELLOW; GLUCOSE, URINE >=500 mg/dL (NEGATIVE); KETONES,URINE 20 mg/dL (NEGATIVE); LEUKOCYTE ESTERASE,URINE NEGATIVE (NEGATIVE); NITRITE,URINE NEGATIVE (NEGATIVE); PROTEIN,URINE NEGATIVE (NEGATIVE); URINE SPECIFIC GRAVITY 1.022; UROBILINOGEN,URINE NEGATIVE mg/dL (<2.0)
--- NOTE | 2017-12-05 16:08 | RADIOLOGY REPORT (SQ) ---
EXAM DESCRIPTION: CHEST 2 VIEWS COMPLETED DATE/TIME: 12/05/2017 3:54 pm REASON FOR STUDY: sob COMPARISON: 11/05/2016 EXAM PARAMETERS: NUMBER OF VIEWS: two views TECHNIQUE: Digital Frontal and Lateral radiographic views of the chest acquired. RADIATION DOSE: NA LIMITATIONS: none FINDINGS: LUNGS AND PLEURA: No opacities, masses or pneumothorax. No pleural effusion. MEDIASTINUM AND HILAR STRUCTURES: No masses or contour abnormalities. HEART AND VASCULAR STRUCTURES: Heart normal size. No evidence for failure. BONES: No acute findings. HARDWARE: None in the chest. OTHER: No other significant finding. IMPRESSION: NO ACUTE RADIOGRAPHIC FINDING IN THE CHEST. TECHNICAL DOCUMENTATION: JOB ID: [id number] [employer]- All Rights Reserved Reading location - IP/workstation name: [email or web address]
[2017-12-05 16:28] LABS: URINE AMPHETAMINES SCREEN NEGATIVE; URINE BARBITURATES SCREEN NEGATIVE; URINE BENZODIAZEPINES SCREEN NEGATIVE; URINE COCAINE SCREEN NEGATIVE; URINE MARIJUANA (THC) SCREEN NEGATIVE; URINE METHADONE SCREEN NEGATIVE; URINE PHENCYCLIDINE SCREEN NEGATIVE
--- NOTE | 2017-12-05 17:24 | ER Document Report ---
ED General - General Chief Complaint: Nausea/Vomiting/Diarrhea Stated Complaint: WEAK, VOMITING, DIZZY Time Seen by Provider: 12/05/17 15:24 TRAVEL OUTSIDE OF THE [place] IN LAST 30 DAYS: No - HPI Patient complains to provider of: Nausea vomiting diarrhea sputum productionCough Notes: Patient coming in with above-stated symptoms. Patient states ongoing for the last 3 days. Patient states she does have a smoking history. Patient upon EMS arrival was found to have a [id number] placed on oxygen. Patient upon my evaluation is standing at 94% with no supplemental oxygen. Patient denies any recent travel denies any recent trauma. Patient states she is coughing up some yellow-green sputum. Denies fevers chills denies any night sweats. Patient denies any recent antibiotics. Patient denies any chest pain or abdominal pain patient states she mostly is nauseated and throws up whenever she has a coughing spell. Also states diarrhea no new pets no recent travel. Patient is tachycardic on the monitor upon my evaluation but otherwise does not look in no distress - Related Data Allergies/Adverse Reactions: No Known Allergies Allergy (Verified 12/05/17 14:57) Past Medical History - Social History Smoking Status: Current Every Day Smoker Chew tobacco use (# tins/day): No Frequency of alcohol use: None Drug Abuse: Marijuana Family History: Arthritis, CAD, CVA, DM, Hyperlipidemia, Hypertension, Malignancy, Thyroid Disfunction Patient has suicidal ideation: No Patient has homicidal ideation: No - Past Medical History Cardiac Medical History: Reports: Hx Hypertension - no meds states she has medicines but refuses to take them Denies: Hx Congestive Heart Failure, Hx Heart Attack Pulmonary Medical History: Reports: Hx Asthma, Hx Bronchitis, Hx Pneumonia Denies: Hx COPD, Hx Tuberculosis Neurological Medical History: Denies: Hx Seizures Endocrine Medical History: Reports: Hx Diabetes Mellitus Type 2 - no meds, meds "make me sick" Renal/ Medical History: Denies: Hx End Stage Renal Disease, Hx Kidney Stones, Hx Peritoneal Dialysis GI Medical History: Denies: Hx Cirrhosis, Hx Gastroesophageal Reflux Disease, Hx Ulcer Musculoskeltal Medical History: Denies Hx Arthritis, Denies Hx Multiple Sclerosis, Reports Hx Musculoskeletal Deformity, Reports Hx Musculoskeletal Trauma Psychiatric Medical History: Reports: Hx Depression Denies: Hx Bipolar Disorder, Hx Schizophrenia Past Surgical History: Reports: Hx Cholecystectomy - Immunizations Immunizations up to date: Yes Hx Diphtheria, Pertussis, Tetanus Vaccination: Yes Review of Systems - Review of Systems Constitutional: No symptoms reported EENT: No symptoms reported Cardiovascular: No symptoms reported Respiratory: Cough, Short of breath, Sputum Gastrointestinal: Diarrhea, Nausea, Vomiting Genitourinary: No symptoms reported Female Genitourinary: No symptoms reported Musculoskeletal: No symptoms reported Skin: No symptoms reported Hematologic/Lymphatic: No symptoms reported Neurological/Psychological: No symptoms reported Physical Exam - Vital signs Vitals: Temp Pulse Resp BP Pulse Ox 98.4 F 117 H 18 155/87 H 95 12/05/17 14:54 12/05/17 14:54 12/05/17 14:54 12/05/17 14:54 12/05/17 14:54 Interpretation: Normal - General General appearance: Appears well, Alert - HEENT Head: Normocephalic, Atraumatic Eyes: Normal Pupils: PERRL - Respiratory Respiratory status: No respiratory distress Chest status: Nontender Breath sounds: Normal Chest palpation: Normal - Cardiovascular Rhythm: Regular Heart sounds: Normal auscultation Murmur: No - Abdominal Inspection: Normal Distension: No distension Bowel sounds: Normal Tenderness: Nontender Organomegaly: No organomegaly - Back Back: Normal, Nontender - Extremities General upper extremity: Normal inspection, Nontender, Normal color, Normal ROM , Normal temperature General lower extremity: Normal inspection, Nontender, Normal color, Normal ROM , Normal temperature, Normal weight bearing. No: Meryl's sign - Neurological Neuro grossly intact: Yes Cognition: Normal Orientation: AAOx4 [place] Coma Scale Eye Opening: Spontaneous [place] Coma Scale Verbal: Oriented [place] Coma Scale Motor: Obeys Commands [place] Coma Scale Total: 15 Speech: Normal Motor strength normal: LUE, RUE, LLE, RLE Sensory: Normal - Psychological Associated symptoms: Normal affect, Normal mood - Skin Skin Temperature: Warm Skin Moisture: Dry Skin Color: Normal Course - Re-evaluation Re-evalutation: 12/05/17 22:36 The patient has decided not to proceed with further recommended testing or treatment to determine the cause of their symptoms. The risks and alternatives to the recommendation were discussed and the patient voiced understanding. The patient appears clinically to have capacity to make this decision. The patient was instructed that he/she could return to the ER at any time to complete the testing or treatment.. For evaluation of the past medical history does show a negative stress test in control diabetes. Patient states that she is not taking her metformin because it causes her diarrhea. Patient was given IV fluids here for her tachycardia d-dimer negative troponin negative leukocytosis them unclear etiology for with sputum production negative chest x-ray possible early development of pneumonia or bronchitis. Patient awake remained tachycardic and also encouraging patient to stay for further IV fluids and further evaluation of her tachycardia declined and was to be discharged. Because of the above-stated possibilities did provide bronchodilator therapy with a prescription for ProAir air and also started patient on doxycycline possible bronchitis developing pneumonia. Patient was encouraged to drink plenty fluids return to ER if any symptoms worsen - Vital Signs Vital signs: Temp Pulse Resp BP Pulse Ox 98.4 F 117 H 17 125/98 H 94 12/05/17 14:54 12/05/17 14:54 12/05/17 17:01 12/05/17 17:01 12/05/17 17:01 - Laboratory Result Diagrams: 12/05/17 14:15 12/05/17 14:15 Laboratory results interpreted by me: 12/05/17 12/05/17 12/05/17 14:15 14:15 14:48 WBC 17.6 H RBC 5.47 H Hgb 15.7 H Seg Neuts % (Manual) 84 H Band Neutrophils % 1 L Lymphocytes % (Manual) 6 L Abs Neuts (Manual) 15.0 H Abs Monocytes (Manual) 1.6 H Chloride 92 L Carbon Dioxide 31 H BUN 6 L Glucose 341 H Total Bilirubin 2.4 H Direct Bilirubin 0.6 H Urine Glucose (UA) >=500 H Urine Ketones 20 H Discharge - Discharge Clinical Impression: Sinus tachycardia, Bronchitis, Nausea vomiting and diarrhea Diabetes mellitus Qualifiers: Diabetes mellitus type: type 2 Diabetes mellitus vermin exterminator insulin use: without vermin exterminator use Proliferative retinopathy type: unspecified Disposition: HOME, SELF-CARE Instructions: Bronchitis ([facility]), Nausea or Vomiting, Nonspecific ([facility]), Sinus Tachycardia ([facility]) Additional Instructions: Yoiu have decided not to proceed with further recommended testing or treatment to determine the cause of their symptoms. The risks and alternatives to the recommendation were discussed and you voiced understanding. You have the appears clinically to have capacity to make this decision. You are instructed that he/she could return to the ER at any time to complete the testing or treatment.. Laboratory studies today shows no signs of pneumonia no elevation in white count and her vital signs show that she continues to have a very fast heart rate. This may be due to underlying infection and possible bronchitis that we do not see at this time also may be due to dehydration. I would recommend she stay for IV fluids and further monitoring testing however at this time he decided not to pursue this and have left AGAINST MEDICAL ADVICE. I will give you a prescription for doxycycline antibiotic to help out with any underlying bronchitis also given a prescription for bronchodilator to help out with the shortness of breath called pro-air. Also give a prescription for Zofran for nausea. Highly recommend to drink plenty water to stay well-hydrated return to ER anytime for further workup follow-up with your primary care physician Prescriptions: Albuterol Sulfate [Proair HFA Inhalation Aerosol 8.5 gm MDI] 2 puff IH Q4H PRN # 1 mdi PRN Reason: Doxycycline Hyclate 100 mg PO BID #14 capsule Ondansetron [Zofran Odt] 4 mg PO Q6 PRN #30 tab.rapdis PRN Reason: For Nausea/Vomiting Forms: Smoking Cessation Education
[2017-12-05 17:32] VITALS: BP 125/98
--- NOTE | 2017-12-05 22:48 | EKG REPORT ---
SEVERITY:- BORDERLINE ECG - SINUS TACHYCARDIA LOW VOLTAGE IN FRONTAL LEADS BORDERLINE T ABNORMALITIES, INFERIOR LEADS : Confirmed by: Cecily Salinas 05-Dec-2017 22:47:18
== END 2017-12-05 17:48 | disposition home or self-care (01) ==
LOC: ER 14:37
DX: R00.0 Tachycardia, unspecified (principal); J40 Bronchitis, not specified as acute or chronic; R11.2 Nausea with vomiting, unspecified; R19.7 Diarrhea, unspecified; F17.200 Nicotine dependence, unspecified, uncomplicated; E11.9 Type 2 diabetes mellitus without complications; Z90.49 Acquired absence of other specified parts of digestive tract
CPT/HCPCS: 93005; 99285; 96360; 36415; 80307 ×2; 82550; 83690; 85025; 80053; 81001; 84484; 85379; 71046; 93010; J7030

== ENCOUNTER 2017-12-07 04:59 | Emergency (ER) | payer SELFPAY ==
[2017-12-07] MEDS ORDERED: PREDNISONE 20 MG TABLET PO ONE (05:21)
[2017-12-07] MEDS ORDERED: IPRATROPIUM/ALBUTEROL 0.5-2.5 MG/3 ML AMPUL NEB ONE (05:21)
[2017-12-07] MEDS ORDERED: ALBUTEROL SULFATE 0.083% NEB 2.5 MG/3 ML AMPUL NEB SCH (05:37)
--- NOTE | 2017-12-07 06:30 | ER Document Report ---
ED Respiratory Problem - General Mode of Arrival: Ambulatory Information source: Patient TRAVEL OUTSIDE OF THE [place] IN LAST 30 DAYS: No <MILTON EDOUARD - Last Filed: 12/07/17 08:49> <LAURIE GALDAMEZ - Last Filed: 12/09/17 15:03> - General Chief Complaint: Breathing Difficulty Stated Complaint: RESPIRATORY DISTRESS Time Seen by Provider: 12/07/17 06:11 Notes: Patient is a 47 year old female that presents to the emergency department today with complaints of shortness of breath with associated wheezing and cough. Patient states she was diagnosed with bronchitis 2 days ago and put on antibiotics however she did not get them because they were "expensive". After review of patient records, patient had a negative d-dimer during that visit 2 days ago as well. (MILTON EDOUARD) - Related Data Allergies/Adverse Reactions: No Known Allergies Allergy (Verified 12/05/17 14:57) Past Medical History - General Information source: Patient - Social History Smoking Status: Former Smoker Cigarette use (# per day): No Frequency of alcohol use: None Drug Abuse: None Lives with: Family Family History: Arthritis, CAD, CVA, DM, Hyperlipidemia, Hypertension, Malignancy, Thyroid Disfunction Patient has suicidal ideation: No Patient has homicidal ideation: No - Past Medical History Cardiac Medical History: Reports: Hx Hypertension Pulmonary Medical History: Reports: Hx Asthma, Hx Bronchitis, Hx Pneumonia Endocrine Medical History: Reports: Hx Diabetes Mellitus Type 2 Musculoskeltal Medical History: Reports Hx Musculoskeletal Deformity, Reports Hx Musculoskeletal Trauma Psychiatric Medical History: Reports: Hx Depression Past Surgical History: Reports: Hx Cholecystectomy - Immunizations Immunizations up to date: Yes Hx Diphtheria, Pertussis, Tetanus Vaccination: Yes <MILTON EDOUARD - Last Filed: 12/07/17 08:49> Review of Systems - Review of Systems Constitutional: No symptoms reported EENT: No symptoms reported Cardiovascular: denies: Chest pain Respiratory: See HPI, Cough, Short of breath, Wheezing Gastrointestinal: No symptoms reported Genitourinary: No symptoms reported Female Genitourinary: No symptoms reported Musculoskeletal: No symptoms reported Skin: No symptoms reported Hematologic/Lymphatic: No symptoms reported Neurological/Psychological: No symptoms reported -: Yes All other systems reviewed and negative <MILTON EDOUARD - Last Filed: 12/07/17 08:49> Physical Exam <MILTON EDOUARD - Last Filed: 12/07/17 08:49> <LAURIE GALDAMEZ Yajaira - Last Filed: 12/09/17 15:03> - Vital signs Vitals: Resp 14 12/07/17 05:07 - Notes Notes: Physical Exam: General: Alert, appears well. HEENT: Normocephalic. Atraumatic. PERRL. Extraocular movements intact. Oropharynx clear. Neck: Supple. Non-tender. Respiratory: No respiratory distress. Mild to moderate wheezing in all lung rosario bilaterally. Cardiovascular: Slightly tachycardic, regular rhythm. Abdominal: Normal Inspection. Non-tender. No distension. Normal Bowel Sounds. Back: Non-tender. No deformity or step off. Extremities: Moves all four extremities. Upper extremities: Normal inspection. Normal ROM. Lower extremities: Normal inspection. No edema. Normal ROM. Neurological: Normal cognition. AAOx4. Normal speech. Psychological: Normal affect. Normal Mood. Skin: Warm. Dry. Normal color. (MILTON EDOUARD) Course - Laboratory Result Diagrams: 12/07/17 06:25 12/07/17 06:25 <MILTON EDOUARD - Last Filed: 12/07/17 08:49> - Laboratory Result Diagrams: 12/07/17 06:25 12/07/17 06:25 - EKG Interpretation by Or EKG shows normal: Sinus rhythm Rate: Tachycardia Rhythm: NSR <LAURIE GALDAMEZ Yajaira - Last Filed: 12/09/17 15:03> - Re-evaluation Re-evalutation: 12/07/17 07:58 Patient symptoms are improving with duo nebulizer. Patient well-appearing in no acute distress at this time speaking in full sentences. She states she return to emergency department because she was not able to fill her prescriptions due to cost. Will review medications with patient with good Rx to ensure she is able to afford medications. With workup consistent with bronchitis. Will be provided prescription of steroids and will be provided albuterol inhaler in the emergency department due to costs. Will also be provided a Z-Bobo. 12/07/17 08:20 Patient continues to feel better, sitting up in bed, NAD. D/C as discussed. GoodRx card provided. (LAURIE GALDAMEZ) - Vital Signs Vital signs: Temp Pulse Resp BP Pulse Ox 97.5 F 20 139/93 H 91 L 12/07/17 08:37 12/07/17 08:01 12/07/17 08:01 12/07/17 08:01 - Laboratory Laboratory results interpreted by me: 12/07/17 12/07/17 06:25 06:25 WBC 14.1 H Lymphocytes % 12.4 L Absolute Neutrophils 11.0 H Potassium 3.2 L BUN 4 L Creatinine 0.40 L Glucose 289 H Direct Bilirubin 0.6 H - Transfer of Care Notes: 12/09/17 15:02 I personally performed the services described documentation, reviewed and edited the documentation which was dictated to describe my presence, and it accurately records my words and actions. (LAURIE GALDAMEZ) Discharge <MILTON EDOUARD - Last Filed: 12/07/17 08:49> <LAURIE GALDAMEZ - Last Filed: 12/09/17 15:03> - Discharge Clinical Impression: Bronchitis Condition: Good Disposition: HOME, SELF-CARE Additional Instructions: Please return to the emergency department for any concerns or worsening symptoms. Prescriptions: Azithromycin 250 mg PO ASDIR PRN 5 Days #6 tablet PRN Reason: Prednisone [Deltasone 20 mg Tablet] 40 mg PO DAILY 5 Days #10 tablet Referrals: [facility] [NO LOCAL MD] - Follow up in 3-5 days Scribe Attestation: 12/09/17 15:03 I personally performed the services described documentation, reviewed and edited the documentation which was dictated to describe my presence, and it accurately records my words and actions. (LAURIE GALDAMEZ) Scribe Documentation - Scribe Written by Milee:: Ap Ortiz, 12/07/2017 0930 acting as scribe for :: Reji <MILTON EDOUARD - Last Filed: 12/07/17 08:49>
[2017-12-07] MEDS ORDERED: ALBUTEROL SULFATE 0.083% NEB 2.5 MG/3 ML AMPUL NEB ONE (06:31)
[2017-12-07 06:38] LABS: ABSOLUTE BASOPHILS # (AUTO) 0.1 10^3/uL (0.0-0.2); ABSOLUTE EOSINOPHILS # (AUTO) 0.1 10^3/uL (0.0-0.6); ABSOLUTE LYMPHOCYTES (AUTO) 1.7 10^3/uL (0.5-4.7); ABSOLUTE MONOCYTES (AUTO) 1.2 10^3/uL (0.1-1.4); BASOPHILS % (AUTO) 0.5 % (0-2); EOSINOPHILS % (AUTO) 0.5 % (0-6); HEMATOCRIT 40.2 % (36.0-47.0); HEMOGLOBIN 14.1 g/dL (12.0-15.5); LYMPHOCYTES % (AUTO) 12.4 % (13-45); MEAN CORPUSCULAR HEMOGLOBIN 28.9 pg (27.0-33.4); MEAN CORPUSCULAR HGB CONC 35.2 g/dL (32.0-36.0); MEAN CORPUSCULAR VOLUME 82 fl (80-97); MONOCYTES % (AUTO) 8.6 % (3-13); PLATELET COUNT 325 10^3/uL (150-450); RED CELL DISTRIBUTION WIDTH 13.2 % (11.5-14.0); TOTAL CELLS COUNTED % (AUTO) 100 %; WHITE BLOOD COUNT 14.1 10^3/uL (4.0-10.5)
[2017-12-07] MEDS: IPRATROPIUM BROMIDE 0.02% NEB 0.5 MG/2.5 ML AMPUL NEB PRN ×2 (06:54→07:46)
--- NOTE | 2017-12-07 07:00 | RADIOLOGY REPORT (SQ) ---
EXAM DESCRIPTION: XR CHEST 1 VIEW COMPLETED DATE/TME: 12/07/2017 06:14 CLINICAL HISTORY: 47 years Female, sob COMPARISON: None. NUMBER OF VIEWS/TECHNIQUE: 1/AP FINDINGS: Adequate lung volume, clear parenchyma, normal cardiac silhouette, and intact bony thorax. IMPRESSION: No acute cardiopulmonary findings.
[2017-12-07 07:03] LABS: ALANINE AMINOTRANSFERASE 35 U/L (9-52); ALBUMIN 3.8 g/dL (3.5-5.0); ALKALINE PHOSPHATASE 97 U/L (38-126); ANION GAP 15 (5-19); ASPARTATE AMINO TRANSFERASE 28 U/L (14-36); BILIRUBIN,DIRECT 0.6 mg/dL (0.0-0.4); BILIRUBIN,TOTAL 1.2 mg/dL (0.2-1.3); BLOOD UREA NITROGEN 4 mg/dL (7-20); CALCIUM 9.3 mg/dL (8.4-10.2); CARBON DIOXIDE 28 mmol/L (22-30); CHLORIDE 98 mmol/L (98-107); GLUCOSE 289 mg/dL (75-110); POTASSIUM 3.2 mmol/L (3.6-5.0); SODIUM 140.9 mmol/L (137-145); TOTAL PROTEIN 6.7 g/dL (6.3-8.2)
[2017-12-07] MEDS ORDERED: ALBUTEROL SULFATE HFA (90 MCG/PUFF) 8 GM MDI (1 MDI/ER DISP) IH ONE (08:01)
[2017-12-07 08:38] VITALS: BP 139/93
--- NOTE | 2017-12-07 09:37 | EKG REPORT ---
SEVERITY:- ABNORMAL ECG - SINUS TACHYCARDIA LEFT POSTERIOR FASCICULAR BLOCK LOW VOLTAGE WITH RIGHT AXIS DEVIATION CONSIDER ANTEROSEPTAL INFARCT : Confirmed by: Cecily Salinas 07-Dec-2017 09:36:56
== END 2017-12-07 08:38 | disposition home or self-care (01) ==
LOC: ER 04:59
DX: J45.909 Unspecified asthma, uncomplicated (principal); R06.02 Shortness of breath; R05 Cough; Z87.891 Personal history of nicotine dependence; I10 Essential (primary) hypertension; E11.9 Type 2 diabetes mellitus without complications
CPT/HCPCS: 93005; 94640 ×2; 99284; 36415; 83735; 85025; 80053; 84484; 71045; 93010; J7512; J3490 ×2; J7620

== ENCOUNTER 2018-03-04 12:25 | Emergency (ER) | payer SELFPAY ==
[2018-03-04] MEDS ORDERED: ONDANSETRON 4 MG TAB.RAPDIS PO ONE (13:19)
[2018-03-04] MEDS ORDERED: MORPHINE SULFATE 10 MG/ML INJ IV ONE (13:21)
--- NOTE | 2018-03-04 13:22 | ER Document Report ---
ED Medical Screen (RME) - General Chief Complaint: Abdominal Pain Stated Complaint: ABDOMINAL PAIN Time Seen by Provider: 03/04/18 13:19 Mode of Arrival: Ambulatory Information source: Patient Notes: Patient complained of right-sided abdominal pain which started this morning. She denies chest pain, shortness of breath, nausea, vomiting or diarrhea. I have greeted and performed a rapid initial assessment of this patient. A comprehensive ED assessment and evaluation of the patient, analysis of test results and completion of the medical decision making process will be conducted by additional ED providers. TRAVEL OUTSIDE OF THE [place] IN LAST 30 DAYS: No - Related Data Allergies/Adverse Reactions: No Known Allergies Allergy (Verified 03/04/18 13:07) Past Medical History - Social History Chew tobacco use (# tins/day): No Frequency of alcohol use: None Drug Abuse: None - Past Medical History Cardiac Medical History: Reports: Hx Hypertension Denies: Hx Congestive Heart Failure, Hx Heart Attack Pulmonary Medical History: Reports: Hx Asthma, Hx Bronchitis, Hx Pneumonia Denies: Hx COPD, Hx Tuberculosis Neurological Medical History: Denies: Hx Seizures Endocrine Medical History: Reports: Hx Diabetes Mellitus Type 2 Renal/ Medical History: Denies: Hx End Stage Renal Disease, Hx Kidney Stones, Hx Peritoneal Dialysis GI Medical History: Denies: Hx Cirrhosis, Hx Gastroesophageal Reflux Disease, Hx Ulcer Musculoskeltal Medical History: Denies Hx Arthritis, Denies Hx Multiple Sclerosis, Reports Hx Musculoskeletal Deformity, Reports Hx Musculoskeletal Trauma Psychiatric Medical History: Reports: Hx Depression Denies: Hx Bipolar Disorder, Hx Schizophrenia Past Surgical History: Reports: Hx Cholecystectomy - Immunizations Immunizations up to date: Yes Hx Diphtheria, Pertussis, Tetanus Vaccination: Yes Physical Exam - Vital signs Vitals: Temp Pulse Resp BP Pulse Ox 97.6 F 100 16 191/99 H 95 03/04/18 12:33 03/04/18 12:33 03/04/18 12:33 03/04/18 12:33 03/04/18 12:33 Course - Vital Signs Vital signs: Temp Pulse Resp BP Pulse Ox 97.6 F 100 16 191/99 H 95 03/04/18 12:33 03/04/18 12:33 03/04/18 12:33 03/04/18 12:33 03/04/18 12:33
[2018-03-04 15:08] LABS: HEMATOCRIT 44.6 % (36.0-47.0); HEMOGLOBIN 15.9 g/dL (12.0-15.5); MEAN CORPUSCULAR HGB CONC 35.6 g/dL (32.0-36.0); MEAN CORPUSCULAR VOLUME 82 fl (80-97); PLATELET COUNT 309 10^3/uL (150-450); RED BLOOD COUNT 5.47 10^6/uL (3.72-5.28); RED CELL DISTRIBUTION WIDTH 14.3 % (11.5-14.0); WHITE BLOOD COUNT 9.5 10^3/uL (4.0-10.5)
[2018-03-04 15:15] LABS: APPEARANCE,URINE CLEAR; BILIRUBIN,URINE SMALL (NEGATIVE); COLOR,URINE YELLOW; GLUCOSE, URINE NEGATIVE (NEGATIVE); KETONES,URINE 25 mg/dL (NEGATIVE); LEUKOCYTE ESTERASE,URINE NEGATIVE (NEGATIVE); NITRITE,URINE NEGATIVE (NEGATIVE); PROTEIN,URINE 30 mg/dL (NEGATIVE); URINE SPECIFIC GRAVITY 1.021
[2018-03-04 15:27] LABS: ALANINE AMINOTRANSFERASE 43 U/L (9-52); ALBUMIN 4.8 g/dL (3.5-5.0); ALKALINE PHOSPHATASE 62 U/L (38-126); ANION GAP 11 (5-19); ASPARTATE AMINO TRANSFERASE 26 U/L (14-36); BILIRUBIN,DIRECT 0.7 mg/dL (0.0-0.4); BILIRUBIN,TOTAL 2.3 mg/dL (0.2-1.3); BLOOD UREA NITROGEN 6 mg/dL (7-20); CALCIUM 10.3 mg/dL (8.4-10.2); CARBON DIOXIDE 32 mmol/L (22-30); CHLORIDE 99 mmol/L (98-107); GLUCOSE 153 mg/dL (75-110); LIPASE 52.5 U/L (23-300); POTASSIUM 3.6 mmol/L (3.6-5.0); SODIUM 141.9 mmol/L (137-145); TOTAL PROTEIN 8.1 g/dL (6.3-8.2)
[2018-03-04 15:29] LABS: ABSOLUTE MONOCYTES # (MANUAL) 0.3 10^3/uL (0.1-1.4); ABSOLUTE NEUTROPHILS# (MANUAL) 7.2 10^3/uL (1.7-8.2); BASOPHILS % (MANUAL) 0 % (0-2); EOSINOPHILS % (MANUAL) 0 % (0-6); LYMPHOCYTES % (MANUAL) 17 % (13-45); MONOCYTES % (MANUAL) 3 % (3-13); SEGMENTED NEUTROPHILS % (MAN) 76 % (42-78); TOTAL CELLS COUNTED 100
[2018-03-04 15:30] LABS: ANISOCYTOSIS SLIGHT; OVALOCYTES SLIGHT; PLATELET COMMENT ADEQUATE; POIKILOCYTOSIS SLIGHT; TEAR DROP CELLS SLIGHT
--- NOTE | 2018-03-04 17:17 | ER Document Report ---
ED GI/ - General Chief Complaint: Abdominal Pain Stated Complaint: ABDOMINAL PAIN Time Seen by Provider: 03/04/18 13:19 Mode of Arrival: Ambulatory Notes: Patient is a 47-year-old female who presents with chief complaint of right lower quadrant pain that started yesterday. Patient denies any fevers, nausea, vomiting or diarrhea. Patient denies history of this pain before. Patient denies any abnormal vaginal bleeding, dysuria or any other urinary symptoms. TRAVEL OUTSIDE OF THE [place] IN LAST 30 DAYS: No - Related Data Allergies/Adverse Reactions: No Known Allergies Allergy (Verified 03/04/18 13:07) Past Medical History - General Information source: Patient - Social History Smoking Status: Current Every Day Smoker Chew tobacco use (# tins/day): No Frequency of alcohol use: None Drug Abuse: None Family History: Arthritis, CAD, CVA, DM, Hyperlipidemia, Hypertension, Malignancy, Thyroid Disfunction Patient has suicidal ideation: No Patient has homicidal ideation: No - Past Medical History Cardiac Medical History: Reports: Hx Hypertension Denies: Hx Congestive Heart Failure, Hx Heart Attack Pulmonary Medical History: Reports: Hx Asthma, Hx Bronchitis, Hx Pneumonia Denies: Hx COPD, Hx Tuberculosis Neurological Medical History: Denies: Hx Seizures Endocrine Medical History: Reports: Hx Diabetes Mellitus Type 2 Renal/ Medical History: Denies: Hx End Stage Renal Disease, Hx Kidney Stones, Hx Peritoneal Dialysis GI Medical History: Denies: Hx Cirrhosis, Hx Gastroesophageal Reflux Disease, Hx Ulcer Musculoskeletal Medical History: Denies Hx Arthritis, Denies Hx Multiple Sclerosis, Reports Hx Musculoskeletal Deformity, Reports Hx Musculoskeletal Trauma Psychiatric Medical History: Reports: Hx Depression Denies: Hx Bipolar Disorder, Hx Schizophrenia Past Surgical History: Reports: Hx Cholecystectomy - Immunizations Immunizations up to date: Yes Hx Diphtheria, Pertussis, Tetanus Vaccination: Yes Review of Systems - Review of Systems Gastrointestinal: See HPI -: Yes All other systems reviewed and negative Physical Exam - Vital signs Vitals: Temp Pulse Resp BP Pulse Ox 97.6 F 100 16 191/99 H 95 03/04/18 12:33 03/04/18 12:33 03/04/18 12:33 03/04/18 12:33 03/04/18 12:33 - Notes Notes: PHYSICAL EXAMINATION: GENERAL: Well-appearing, well-nourished and in no acute distress. HEAD: Atraumatic, normocephalic. EYES: Pupils equal round and reactive to light, extraocular movements intact, conjunctiva are normal. ENT: Nares patent, oropharynx clear without exudates. Moist mucous membranes. NECK: Normal range of motion, supple without lymphadenopathy LUNGS: Breath sounds clear to auscultation bilaterally and equal. No wheezes rales or rhonchi. HEART: Regular rate and rhythm without murmurs ABDOMEN: Soft, nontender, nondistended abdomen. No guarding, no rebound. No masses appreciated. Female : No CVA tenderness. Musculoskeletal: Normal range of motion, no pitting or edema. No cyanosis. NEUROLOGICAL: Cranial nerves grossly intact. Normal speech, normal gait. Normal sensory, motor exams PSYCH: Normal mood, normal affect. SKIN: Warm, Dry, normal turgor, no rashes or lesions noted. Course - Re-evaluation Re-evalutation: Discussed test results with patient, patient was offered a CT scan. Patient's pain has resolved prior to her receiving pain medications that were ordered by triage provider. Patient is requesting to be discharged at this time. Patient given strict ED return precautions to include worsening abdominal pain, vomiting , development of fever or any other symptom that is concerning to her. Also discussed patient's blood pressure, patient reports she has a history of hypertension but stopped taking her medications as she feels that "my doctor does not know what he is talking about". Patient declines to stay for repeat blood pressure. Patient is agreeable to same. - Vital Signs Vital signs: Temp Pulse Resp BP Pulse Ox 97.6 F 104 H 16 183/99 H 94 03/04/18 17:23 03/04/18 17:23 03/04/18 12:33 03/04/18 17:23 03/04/18 17:23 - Laboratory Result Diagrams: 03/04/18 14:55 03/04/18 14:55 Laboratory results interpreted by me: 03/04/18 03/04/18 03/04/18 14:00 14:55 14:55 RBC 5.47 H Hgb 15.9 H RDW 14.3 H Carbon Dioxide 32 H BUN 6 L Creatinine 0.51 L Glucose 153 H Calcium 10.3 H Total Bilirubin 2.3 H Direct Bilirubin 0.7 H Urine Protein 30 H Urine Ketones 25 H Urine Bilirubin SMALL H Urine Urobilinogen 2.0 H Discharge - Discharge Clinical Impression: Abdominal pain Qualifiers: Abdominal location: generalized Qualified Code(s): R10.84 - Generalized abdominal pain Condition: Stable Disposition: HOME, SELF-CARE Additional Instructions: Abdominal Pain There are many causes of abdominal pain. Pain can mean a serious problem requiring surgery (such as appendicitis). It can also be an innocent problem that goes away on its own (such as a viral infection). Often, time must pass to determine the cause of pain. The physician does not feel that hospitalization is necessary, at present. Things may change within the next 24 hours. Call the doctor or come back for re- examination if any problems occur, such as: (1) Pain that becomes more severe, steady, or becomes concentrated in one specific area. Also, pain that is more severe with movement or coughing. (2) Vomiting that persists or becomes more frequent. (3) Blood in the vomitus, urine, or bowel movements. Blood in the stool may have a tarry or black appearance. (4) Shaking chills or fever greater than 100 degrees F. (5) The abdomen becomes more distended or swollen. (6) Bowel movements cease. (7) Failure to improve as expected. As discussed, your workup today was unremarkable. We discussed the option of doing a CAT scan due to the location of your pain however you declined. Please use the above guidelines as precautions to return to the emergency department for. We are happy to reevaluate you at any time.
[2018-03-04 17:30] VITALS: BP 183/99
== END 2018-03-04 17:32 | disposition home or self-care (01) ==
LOC: ER 12:25
DX: R10.84 Generalized abdominal pain (principal); R10.31 Right lower quadrant pain; F17.210 Nicotine dependence, cigarettes, uncomplicated; I10 Essential (primary) hypertension; E11.9 Type 2 diabetes mellitus without complications; Z90.49 Acquired absence of other specified parts of digestive tract
CPT/HCPCS: 99284; 36415; 83690; 85025; 81025; 80053; 81001; S0119

== ENCOUNTER 2019-02-02 11:28 | Emergency (ER) | payer SELFPAY ==
[2019-02-02] MEDS ORDERED: PREDNISONE 20 MG TABLET PO ONE (11:45)
--- NOTE | 2019-02-02 11:48 | ER Document Report ---
HPI - HPI Patient complains to provider of: left leg pain Time Seen by Provider: 02/02/19 11:34 Onset: This morning Onset/Duration: Waxing and waning Quality of pain: Achy Pain Level: 2 Context: Patient presents complaining of a pinching sensation to the anterior left thigh that started today. Patient reports pain comes and goes. Patient denies any injury or fever. Patient additionally has cough and audible wheezing. Patient does report a history of smoking although declines to divulge how much she smokes. Patient denies any fever, chest pain or shortness of breath. Patient states that she woke up in the ICU after receiving a breathing treatment in the past so since then she declines to have any nebulizer treatments or inhalers. Associated Symptoms: Nonproductive cough, Other - left leg pain. denies: Chest pain, Earache, Fever, Hurts to breath, Leg swelling, Nausea, Vomiting, Sinus pain/drainage, Shortness of breath Exacerbated by: Denies Relieved by: Denies Recently seen / treated by doctor: No - ROS ROS below otherwise negative: Yes Systems Reviewed and Negative: Yes All other systems reviewed and negative - CONSTITUTIONAL Constitutional: DENIES: Fever, Chills - EENT EENT: DENIES: Sore Throat, Ear Pain, Congestion - NEURO Neurology: DENIES: Headache, Weakness, Dizzinesss / Vertigo - CARDIOVASCULAR Cardiovascular: DENIES: Chest pain - RESPIRATORY Respiratory: REPORTS: Coughing. DENIES: Trouble Breathing - GASTROINTESTINAL Gastrointestinal: DENIES: Abdominal Pain, Nausea - REPRODUCTIVE Reproductive: DENIES: : - MUSCULOSKELETAL Musculoskeletal: REPORTS: Extremity pain - LEFT THIGH. DENIES: Back Pain, Neck Pain, Swelling - DERM Skin Color: Normal Skin Problems: None Past Medical History - General Information source: Patient - Social History Smoking Status: Current Every Day Smoker Chew tobacco use (# tins/day): No Frequency of alcohol use: None Drug Abuse: None Occupation: none Family History: Arthritis, CAD, CVA, DM, Hyperlipidemia, Hypertension, Ma lignancy, Thyroid Disfunction Patient has suicidal ideation: No Patient has homicidal ideation: No - Past Medical History Cardiac Medical History: Reports: Hx Hypertension Pulmonary Medical History: Reports: Hx Asthma, Hx Bronchitis, Hx Pneumonia Denies: Hx Tuberculosis Neurological Medical History: Denies: Hx Seizures Endocrine Medical History: Reports: Hx Diabetes Mellitus Type 2 Musculoskeletal Medical History: Reports Hx Musculoskeletal Deformity, Reports Hx Musculoskeletal Trauma Psychiatric Medical History: Reports: Hx Depression Past Surgical History: Reports: Hx Cholecystectomy - Immunizations Immunizations up to date: Yes Hx Diphtheria, Pertussis, Tetanus Vaccination: Yes Vertical Provider Document - CONSTITUTIONAL Agree With Documented VS: Yes Exam Limitations: No Limitations General Appearance: WD/WN, No Apparent Distress - INFECTION CONTROL TRAVEL OUTSIDE OF THE [place] IN LAST 30 DAYS: No - HEENT HEENT: Atraumatic, Normocephalic - NECK Neck: Normal Inspection, Supple. negative: Lymphadenopathy-Left, Lymphadenopathy-Right - RESPIRATORY Respiratory: No Respiratory Distress, Rhonchi, Wheezing - CARDIOVASCULAR Cardiovascular: Regular Rhythm, No Murmur, Tachycardia Pulses: Normal: Dorsalis pedis - BACK Back: Normal Inspection - MUSCULOSKELETAL/EXTREMETIES Musculoskeletal/Extremeties: MAEW, FROM, Tender - Tenderness to left thigh muscle, no edema, normal skin color and temperature - NEURO Level of Consciousness: Awake, Alert, Appropriate Motor/Sensory: No Motor Deficit - DERM Integumentary: Warm, Dry, No Rash Course - Re-evaluation Re-evalutation: 02/02/19 11:47 Patient declines any nebulizer treatments stating that she feels as though nebulizer treatments and inhalers worsen her asthma symptoms. States the last time she received a nebulizer treatment she woke up in the ICU. Patient with audible wheezing and rhonchi. Patient is agreeable with x-ray imaging at this time. 02/02/19 14:28 Attempted to encourage patient to accept prescription for inhaler. Patient continues to decline treatment stating that she does not like to use inhalers or nebulizers. CXR reviewed, no concern for pneumonia, will treat for COPD exacerbation at this time. Patient is agreeable with accepting prescription for steroids and an antibiotic at this time. Good return precautions discussed with patient. Patient encouraged to return immediately for any chest pain shortness of breath or worsening of her condition. 02/02/19 18:39 - Vital Signs Vital signs: Temp Pulse Resp BP Pulse Ox 97.8 F 111 H 157/93 H 95 02/02/19 11:33 02/02/19 11:33 02/02/19 11:33 02/02/19 11:33 - Diagnostic Test Radiology reviewed: Reports reviewed Discharge - Discharge Clinical Impression: Wheezing, Left leg pain, COPD exacerbation Asthma Qualifiers: Asthma severity: unspecified severity Asthma persistence: unspecified Asthma complication type: unspecified Qualified Code(s): J45.909 - Unspecified asthma, uncomplicated Condition: Stable Disposition: HOME, SELF-CARE Instructions: Antibiotic Therapy ([facility]), Asthma ([facility]), Chronic Obstructive Lung Disease ([facility]), Steroid Medication Additional Instructions: Return immediately for any new or worsening symptoms Followup with your primary care provider, call tomorrow to make a followup appointment Prescriptions: Doxycycline Hyclate 100 mg PO BID #20 capsule Prednisone [Deltasone 20 mg Tablet] 2 tab PO DAILY 5 Days tablet Tramadol HCl [Ultram 50 mg Tablet] 50 mg PO ASDIR PRN #12 tablet PRN Reason: Forms: Smoking Cessation Education Referrals: [facility] [Provider Group] - Follow up as needed
--- NOTE | 2019-02-02 12:41 | RADIOLOGY REPORT (SQ) ---
EXAM DESCRIPTION: CHEST 2 VIEWS COMPLETED DATE/TIME: 02/02/2019 11:56 am REASON FOR STUDY: cough COMPARISON: None. EXAM PARAMETERS: NUMBER OF VIEWS: two views TECHNIQUE: Digital Frontal and Lateral radiographic views of the chest acquired. RADIATION DOSE: NA LIMITATIONS: none FINDINGS: LUNGS AND PLEURA: No opacities, masses or pneumothorax. No pleural effusion. MEDIASTINUM AND HILAR STRUCTURES: No masses or contour abnormalities. HEART AND VASCULAR STRUCTURES: Heart normal size. No evidence for failure. BONES: No acute findings. HARDWARE: None in the chest. OTHER: No other significant finding. IMPRESSION: NO ACUTE RADIOGRAPHIC FINDING IN THE CHEST. TECHNICAL DOCUMENTATION: JOB ID: [id number] [employer]- All Rights Reserved Reading location - IP/workstation name: [email or web address]
[2019-02-02] MEDS ORDERED: DOXYCYCLINE HYCLATE 100 MG TABLET PO ONE (14:28)
[2019-02-02 14:34] VITALS: BP 146/65
--- NOTE | 2019-02-03 13:55 | XCELERA REPORT ---
[address] [place] [facility] [place] [address] Lower Extremity Venous Evaluation Procedure: Color flow and duplex imaging of the veins of the left lower extremity as well as the right Common Femoral vein. Right Sided Venous Evaluation The right common femoral vein is fully compressible. Spontaneous and phasic flow is present in the right common femoral vein. Left Sided Venous Evaluation Normal vessel filling wall to wall, compression and augmentation as well as Colour flow down to the infrageniculate veins. Interpretation Summary No duplex evidence of DVT or obstruction in the left lower extremity nor in the right Common Femoral vein. Name: ARTEMIO SMITH Age: 48 yrs Gender: Female : 1970 Patient Status: Emergency Patient Location: ER Study Date: 02/02/2019 01:29 PM Reason For Study: L thigh pain Ordering Physician: DMITRIY STEINBERG Performed By: Anne-Marie Corona : DMITRIY STEINBERG > Wilian Quinones
== END 2019-02-02 14:38 | disposition home or self-care (01) ==
LOC: ER 11:28
DX: M79.652 Pain in left thigh (principal); J44.1 Chronic obstructive pulmonary disease with (acute) exacerbation; R05 Cough; F17.200 Nicotine dependence, unspecified, uncomplicated; I10 Essential (primary) hypertension; E11.9 Type 2 diabetes mellitus without complications; Z87.01 Personal history of pneumonia (recurrent)
CPT/HCPCS: 99284; 93971 ×2; 71046; J7512

== ENCOUNTER 2019-10-25 09:09 | Emergency (ER) | payer SELFPAY ==
--- NOTE | 2019-10-25 09:35 | ER Document Report ---
ED GI/ - General Chief Complaint: Abdominal Pain Stated Complaint: ABDOMINAL PAIN Time Seen by Provider: 10/25/19 09:25 Notes: CHIEF COMPLAINT: Epigastric abdominal pain with nausea vomiting since yesterday HPI: 49-year-old female presenting to the emergency department complaining of intermittent epigastric abdominal pain that seem to radiate into the lower abdomen with nausea vomiting last night still with some nausea this morning as well as with slight epigastric abdominal discomfort no chest pain shortness of breath. Patient states she is a type II diabetic but does not take medication because she does not want to. She denies dysuria. Denies constipation. Does report 1 loose stool this morning ROS: See HPI - all other systems were reviewed and are otherwise negative Constitutional: no fever Eyes: no drainage, no blurred vision ENT: no runny nose, no sore throat Cardiovascular: no chest pain Resp: no SOB, no cough GI: Positive vomiting, no diarrhea, positive abdominal pain : no dysuria Integumentary: no rash Allergy: no hives Musculoskeletal: no extremity pain or swelling Neurological: no numbness/tingling, no weakness MEDICATIONS: I agree with the patient medications as charted by the RN. ALLERGIES: I agree with the allergies as charted by the RN. PAST MEDICAL HISTORY/PAST SURGICAL HISTORY: Reviewed and agree as charted by RN. SOCIAL HISTORY: Reviewed and agree as charted by RN. FAMILY HISTORY: No significant familial comorbid conditions directly related to patient complaint EXAM: Reviewed vital signs as charted by RN. CONSTITUTIONAL: Alert and oriented and responds appropriately to questions. Well-appearing; well-nourished, no acute distress HEAD: Normocephalic; atraumatic EYES: PERRL; Conjunctivae clear, sclerae non-icteric ENT: normal nose; no rhinorrhea; moist mucous membranes; pharynx without lesions noted, no uvula edema or deviation, no tonsillar hypertrophy, phonation normal NECK: Supple without meningismus; non-tender; no cervical lymphadenopathy, no masses CARD: RRR; no murmurs, no clicks, no rubs, no gallops; symmetric distal pulses RESP: Normal chest excursion without splinting or tachypnea; breath sounds clear and equal bilaterally; no wheezes, no rhonchi, no rales, pulse oximetry 96% on room air not hypoxic ABD/GI: Obese, normal bowel sounds; non-distended; soft, minimal epigastric tenderness on palpation, no rebound, no guarding; no palpable organomegaly or masses. BACK: The back appears normal and is non-tender to palpation, there is no CVA tenderness EXT: Normal ROM in all joints; non-tender to palpation; no cyanosis, no effusions, no edema SKIN: Normal color for age and race; warm; dry; good turgor; no acute lesions noted NEURO: Moves all extremities equally; Motor and sensory function intact PSYCH: The patient's mood and manner are appropriate. Grooming and personal hygiene are appropriate. MDM: 49-year-old female presenting with epigastric abdominal pain with nausea vomiting. Patient seems more concerned about getting a warm blanket that her abdominal pain. She indicates she is a type II diabetic but does not like the medications with the side effects it does not take medications for her diabetes does not follow with a primary care provider for evaluation of same. She has minimal discomfort in the epigastric region given her noncompliance with diabetes management will obtain an EKG and screening cardiac labs in addition to abdominal labs. Will plan for CT to evaluate for obstructive process, she does report a prior history of cholecystectomy TRAVEL OUTSIDE OF THE [place] IN LAST 30 DAYS: No - Related Data Allergies/Adverse Reactions: No Known Allergies Allergy (Verified 02/02/19 11:29) Past Medical History - Social History Smoking Status: Current Every Day Smoker Family History: Arthritis, CAD, CVA, DM, Hyperlipidemia, Hypertension, Malignancy, Thyroid Disfunction - Past Medical History Cardiac Medical History: Reports: Hx Hypertension Denies: Hx Congestive Heart Failure, Hx Heart Attack Pulmonary Medical History: Reports: Hx Asthma, Hx Bronchitis, Hx Pneumonia Denies: Hx COPD, Hx Tuberculosis Neurological Medical History: Denies: Hx Seizures, Hx Parkinson's Disease Endocrine Medical History: Reports: Hx Diabetes Mellitus Type 2 Renal/ Medical History: Denies: Hx End Stage Renal Disease, Hx Kidney Stones, Hx Peritoneal Dialysis GI Medical History: Denies: Hx Cirrhosis, Hx Gastroesophageal Reflux Disease, Hx Ulcer Musculoskeletal Medical History: Denies Hx Arthritis, Denies Hx Multiple Sclerosis, Reports Hx Musculoskeletal Deformity, Reports Hx Musculoskeletal Trauma Psychiatric Medical History: Reports: Hx Depression Denies: Hx Bipolar Disorder, Hx Schizophrenia Past Surgical History: Reports: Hx Cholecystectomy - Immunizations Immunizations up to date: Yes Hx Diphtheria, Pertussis, Tetanus Vaccination: Yes Physical Exam - Vital signs Vitals: Temp Pulse Resp BP Pulse Ox 97.3 F 108 H 22 H 157/78 H 96 10/25/19 09:17 10/25/19 09:17 10/25/19 09:17 10/25/19 09:17 10/25/19 09:17 Course - Re-evaluation Re-evalutation: 10/25/19 10:52 Patient's blood glucose 498. I spoke with her at length about this part of her issue is probably hyperglycemia without DKA today. She verbalizes understanding that she does need to take medication for her diabetes. Modify diet. If imaging studies do not show other acute findings she will likely be discharged to follow-up with our medical provider orientation & mobility specialist if she indicates she wishes to find a new provider to see but I will likely keep her on metformin short-term until she follows up 10/25/19 11:53 CT imaging does not show any acute abnormalities, patient symptoms like related to her uncontrolled diabetes and hyperglycemia. Patient will continue on metformin, I will write patient for Alexa. She is to follow-up with a primary care provider for management of her diabetes which is poorly controlled. Dietary instructions given. Return instructions given. 10/25/19 11:55 Patient is tolerating oral fluids and crackers per her request to eat - Vital Signs Vital signs: Temp Pulse Resp BP Pulse Ox 97.3 F 108 H 22 H 157/78 H 96 10/25/19 09:47 10/25/19 09:17 10/25/19 09:17 10/25/19 09:17 10/25/19 09:17 - Laboratory Result Diagrams: 10/25/19 09:35 10/25/19 09:35 Laboratory results interpreted by me: 10/25/19 10/25/19 10/25/19 09:35 09:35 10:11 WBC 12.7 H RBC 5.73 H Hgb 17.2 H Hct 48.0 H Absolute Neuts (auto) 9.3 H Sodium 130.2 L Chloride 91 L Glucose 498 H* Total Bilirubin 2.0 H Urine Glucose (UA) >=500 H Discharge - Discharge Clinical Impression: Abdominal pain, acute, epigastric, Hyperglycemia Nausea & vomiting Qualifiers: Vomiting type: unspecified Vomiting Intractability: non-intractable Qualified Code(s): R11.2 - Nausea with vomiting, unspecified Condition: Stable Disposition: HOME, SELF-CARE Instructions: Abdominal Pain ([facility]), Hyperglycemia ([facility]) Additional Instructions: Your CT imaging today did not show any acute abnormalities. It is likely that some of your symptoms are related to your uncontrolled diabetes and hyperglycemia today. Take the metformin to ensure that your blood sugars are more reasonable. It is very important that you follow-up with a primary care provider for further management of your diabetes. It is important that you obtain a blood glucose monitor which can be done through a primary care provider to check your blood sugars daily. Modify your diet do not drink soda or other sugar products. Limit excess sugar in your diet to help control your diabetes. Prescriptions: Metformin HCl [Glucophage 500 mg Tablet] 500 mg PO BID #60 tablet Ondansetron [Zofran Odt 4 mg Tablet] 1 - 2 tab PO Q4H PRN #15 tab.rapdis PRN Reason: For Nausea/Vomiting Referrals: SHA NGUYEN MD [COMMUNITY BASED STAFF] - Follow up as needed
[2019-10-25 10:10] LABS: ABSOLUTE EOSINOPHILS # (AUTO) 0.2 10^3/uL (0.0-0.6); ABSOLUTE LYMPHOCYTES (AUTO) 2.1 10^3/uL (0.5-4.7); ABSOLUTE NEUT (AUTO) 9.3 10^3/uL (1.7-8.2); BASOPHILS % (AUTO) 0.3 % (0-2); EOSINOPHILS % (AUTO) 1.4 % (0-6); HEMOGLOBIN 17.2 g/dL (12.0-15.5); LYMPHOCYTES % (AUTO) 16.8 % (13-45); MEAN CORPUSCULAR HGB CONC 35.8 g/dL (32.0-36.0); MEAN CORPUSCULAR VOLUME 84 fl (80-97); MONOCYTES % (AUTO) 7.9 % (3-13); PLATELET COUNT 326 10^3/uL (150-450); RED BLOOD COUNT 5.73 10^6/uL (3.72-5.28); RED CELL DISTRIBUTION WIDTH 13.3 % (11.5-14.0); SEGMENTED NEUTROPHILS % (AUTO) 73.6 % (42-78); TOTAL CELLS COUNTED % (AUTO) 100 %; WHITE BLOOD COUNT 12.7 10^3/uL (4.0-10.5)
[2019-10-25 10:22] LABS: APPEARANCE,URINE CLEAR; BILIRUBIN,URINE NEGATIVE (NEGATIVE); COLOR,URINE YELLOW; GLUCOSE, URINE >=500 mg/dL (NEGATIVE); KETONES,URINE NEGATIVE (NEGATIVE); LEUKOCYTE ESTERASE,URINE NEGATIVE (NEGATIVE); NITRITE,URINE NEGATIVE (NEGATIVE); PROTEIN,URINE NEGATIVE (NEGATIVE); URINE SPECIFIC GRAVITY 1.031; UROBILINOGEN,URINE NEGATIVE mg/dL (<2.0)
--- NOTE | 2019-10-25 10:26 | RADIOLOGY REPORT (SQ) ---
EXAM DESCRIPTION: CHEST 2 VIEWS IMAGES COMPLETED DATE/TIME: 10/25/2019 10:17 am REASON FOR STUDY: upper abd pain COMPARISON: 02/02/2019 EXAM PARAMETERS: NUMBER OF VIEWS: two views TECHNIQUE: Digital Frontal and Lateral radiographic views of the chest acquired. RADIATION DOSE: NA LIMITATIONS: none FINDINGS: LUNGS AND PLEURA: No opacities, masses or pneumothorax. No pleural effusion. MEDIASTINUM AND HILAR STRUCTURES: No masses or contour abnormalities. HEART AND VASCULAR STRUCTURES: Heart normal size. No evidence for failure. BONES: No acute findings. HARDWARE: None in the chest. OTHER: No other significant finding. IMPRESSION: NO ACUTE RADIOGRAPHIC FINDING IN THE CHEST. TECHNICAL DOCUMENTATION: JOB ID: [id number] 2010 [employer]- All Rights Reserved Reading location - IP/workstation name: [email or web address]
[2019-10-25 10:27] LABS: ALBUMIN 4.7 g/dL (3.5-5.0); ALKALINE PHOSPHATASE 77 U/L (38-126); ANION GAP 12 (5-19); ASPARTATE AMINO TRANSFERASE 20 U/L (14-36); BILIRUBIN,DIRECT 0.1 mg/dL (0.0-0.4); BLOOD UREA NITROGEN 15 mg/dL (7-20); CALCIUM 10.2 mg/dL (8.4-10.2); CARBON DIOXIDE 27 mmol/L (22-30); CHLORIDE 91 mmol/L (98-107); POTASSIUM 4.8 mmol/L (3.6-5.0); TOTAL PROTEIN 7.6 g/dL (6.3-8.2)
[2019-10-25 10:29] LABS: ALCOHOL < 10 mg/dL (NONE DETECTED)
[2019-10-25 10:38] LABS: URINE AMPHETAMINES SCREEN NEGATIVE; URINE BARBITURATES SCREEN NEGATIVE; URINE BENZODIAZEPINES SCREEN NEGATIVE; URINE COCAINE SCREEN NEGATIVE; URINE MARIJUANA (THC) SCREEN NEGATIVE; URINE METHADONE SCREEN NEGATIVE; URINE PHENCYCLIDINE SCREEN NEGATIVE
[2019-10-25 10:42] LABS: GLUCOSE 498 mg/dL (75-110)
[2019-10-25] MEDS ORDERED: NORMAL SALINE 1000 ML 1,000 ML IV PRN (10:42)
--- NOTE | 2019-10-25 11:37 | RADIOLOGY REPORT (SQ) ---
EXAM DESCRIPTION: CT ABD/PELVIS WITH IV ONLY IMAGES COMPLETED DATE/TIME: 10/25/2019 11:20 am REASON FOR STUDY: upper abd pain COMPARISON: None. TECHNIQUE: CT scan of the abdomen and pelvis performed using helical scanning technique with dynamic intravenous contrast injection. No oral contrast. Images reviewed with lung, soft tissue, and bone windows. Reconstructed coronal and sagittal MPR images reviewed. Delayed images for evaluation of the urinary system also acquired. All images stored on PACS. All CT scanners at this facility use dose modulation, iterative reconstruction, and/or weight based d osing when appropriate to reduce radiation dose to as low as reasonably achievable (ALARA). [facility]: Dose Right [facility]: CareDose [facility]: Dose Right [facility]: Teradose 4D [facility]: DNAe LTD CONTRAST TYPE AND DOSE: contrast/concentration: Isovue 350.00 mg/ml; Total Contrast Delivered: 75.0 ml; Total Saline Delivered: 61.0 ml RENAL FUNCTION: BUN 15, creatinine 0.55 RADIATION DOSE: CT Rad equipment meets quality standard of care and radiation dose reduction techniq ues were employed. CTDIvol: 8.2 - 11.2 mGy. DLP: 1042 mGy-cm.. LIMITATIONS: None. FINDINGS: LOWER CHEST: No significant findings. No nodules or infiltrates. LIVER: Hepatomegaly. The liver measures just under 19 cm in cranial caudal dimensions. No focal mas s. No ductal dilatation. SPLEEN: Normal size. No focal lesions. PANCREAS: No masses. No significant calcifications. No adjacent inflammation or peripancreatic fluid collections. Pancreatic duct not dilated. GALLBLADDER: Surgically absent. ADRENAL GLANDS: No significant masses or asymmetry. RIGHT KIDNEY AND URETER: No solid masses. No significant calcifications. No hydronephrosis or hyd roureter. LEFT KIDNEY AND URETER: No solid masses. No significant calcifications. No hydronephrosis or hydr oureter. AORTA AND VESSELS: No aneurysm. No dissection. Renal arteries, SMA, celiac without stenosis. RETROPERITONEUM: No retroperitoneal adenopathy, hemorrhage or masses. BOWEL AND PERITONEAL CAVITY: No masses or inflammatory changes. No free fluid or peritoneal masses. APPENDIX: Normal. PELVIS: There is free fluid the pelvis. Etiology of this is uncertain. ABDOMINAL WALL: No masses. No hernias. BONES: No significant or acute findings. OTHER: No other significant finding. IMPRESSION: 1. Hepatomegaly. 2. Small amount of free fluid the pelvis. No other significant findings. TECHNICAL DOCUMENTATION: JOB ID: [id number] Quality ID # [id number]: Final reports with documentation of one or more dose reduction techniques (e.g., Au tomated exposure control, adjustment of the mA and/or kV according to patient size, use of iterative reconstruction technique) 2010 [employer]- All Rights Reserved Reading location - IP/workstation name: [email or web address]
[2019-10-25 12:28] VITALS: BP 165/79
--- NOTE | 2019-10-25 12:55 | EKG REPORT ---
SEVERITY:- BORDERLINE ECG - SINUS TACHYCARDIA LEFT POST FASCICULAR BLOCK LOW VOLTAGE WITH RIGHT AXIS DEVIATION : Confirmed by: Gavino Vieira MD 25-Oct-2019 12:54:32
== END 2019-10-25 12:32 | disposition home or self-care (01) ==
LOC: ER 09:09
DX: R10.13 Epigastric pain (principal); R11.2 Nausea with vomiting, unspecified; E11.65 Type 2 diabetes mellitus with hyperglycemia; F17.200 Nicotine dependence, unspecified, uncomplicated; I10 Essential (primary) hypertension; Z91.14 Patient's other noncompliance with medication regimen
CPT/HCPCS: 93005; 99284; 96360; 36415; 80307 ×2; 83690; 85025; 80053; 81001; 84484; 71046; 74177; 93010; J7030

== ENCOUNTER 2019-10-26 07:28 | Emergency (ER) | payer SELFPAY ==
[2019-10-26] MEDS ORDERED: DICYCLOMINE HCL 20 MG TABLET PO ONE (08:36)
--- NOTE | 2019-10-26 08:41 | ER Document Report ---
ED GI/ - General Chief Complaint: Abdominal Cramping Stated Complaint: ABDOMINAL PAIN Time Seen by Provider: 10/26/19 08:15 Primary Care Provider: [facility] [Provider Group] - Follow up in 1 week [facility] [Provider Group] - Follow up in 1 week Notes: Patient is a 49-year-old female who presents emergency department with a chief complaint of left upper abdominal pain. Patient was seen here in the emergency department yesterday and states that she continues to have symptoms. States th at every time she drinks water, she ends up having a cramping feeling in her stomach. States that her symptoms started 3 days ago. States that her symptoms have not gone away. Patient was started on metformin yesterday. States that she was also started on Zofran, but states that the medication is $60 and states, "I cannot afford that." Patient admits to a history of hypertension and diabetes, which are not controlled with any kind of medication. Patient does not have a primary care doctor. TRAVEL OUTSIDE OF THE [place] IN LAST 30 DAYS: No - Related Data Allergies/Adverse Reactions: No Known Allergies Allergy (Verified 02/02/19 11:29) Past Medical History - Social History Smoking Status: Current Every Day Smoker Chew tobacco use (# tins/day): No Frequency of alcohol use: None Drug Abuse: None Family History: Arthritis, CAD, CVA, DM, Hyperlipidemia, Hypertension, Malignancy, Thyroid Disfunction Patient has homicidal ideation: No - Past Medical History Cardiac Medical History: Reports: Hx Hypertension Denies: Hx Congestive Heart Failure, Hx Heart Attack Pulmonary Medical History: Reports: Hx Asthma, Hx Bronchitis, Hx Pneumonia Denies: Hx COPD, Hx Tuberculosis Neurological Medical History: Denies: Hx Seizures, Hx Parkinson's Disease Endocrine Medical History: Reports: Hx Diabetes Mellitus Type 2 Renal/ Medical History: Denies: Hx End Stage Renal Disease, Hx Kidney Stones, Hx Peritoneal Dialysis GI Medical History: Denies: Hx Cirrhosis, Hx Gastroesophageal Reflux Disease, Hx Ulcer Musculoskeletal Medical History: Denies Hx Arthritis, Denies Hx Multiple Sclerosis, Reports Hx Musculoskeletal Deformity, Reports Hx Musculoskeletal Trauma Psychiatric Medical History: Reports: Hx Depression Denies: Hx Bipolar Disorder, Hx Schizophrenia Past Surgical History: Reports: Hx Cholecystectomy - Immunizations Immunizations up to date: Yes Hx Diphtheria, Pertussis, Tetanus Vaccination: Yes Review of Systems - Review of Systems Notes: REVIEW OF SYSTEMS: CONSTITUTIONAL : Denies recent illness. Denies recent unintentional weight loss. Denies fever, chills, or sweats. EENT: Denies eye, ear, throat, or mouth pain, discharge, or symptoms. Denies nasal or sinus congestion. CARDIOVASCULAR: Denies chest pain. RESPIRATORY: Denies shortness of breath, cough, congestion, difficulty breathing, or wheezing. GASTROINTESTINAL: See HPI. GENITOURINARY: Denies difficulty urinating, burning, blood in urine, urgency or frequency. MUSCULOSKELETAL: Denies neck and back pain. Denies joint pain or swelling. SKIN: Denies rash, itchiness, or lesions HEMATOLOGIC : Denies easy bruising or bleeding. LYMPHATIC: Denies swollen, painful, enlarged glands. NEUROLOGICAL: Denies no numbness or tingling denies weakness. Denies headache. Denies altered mental status. Denies alteration in speech. PSYCHIATRIC: Denies stress, anxiety, alteration in sleep patterns, or depression. All other systems reviewed and negative. Physical Exam - Vital signs Vitals: Temp 97.9 F 10/26/19 07:28 - Notes Notes: PHYSICAL EXAMINATION: GENERAL: Appears well, healthy, well-nourished, no acute distress. HEAD: Normocephalic, atraumatic. EYES: PERRL, conjunctiva normal, all extraocular movements intact, sclera nonicteric ENT: Moist mucous membranes. NECK: Supple, no noticeable swelling, redness, rash. Normal range of motion. LUNGS: Equal breath sounds bilaterally and clear to auscultation. No wheezes rales or rhonchi. CARDIOVASCULAR: S1-S2, regular rate, regular rhythm. Radial pulses 2+, normal. ABDOMEN: Normoactive bowel sounds. Soft, moderately tender left upper abdomen, no guarding, no rebound tenderness, and no masses palpated. EXTREMITIES: Normal strength and range of motion, no pitting or edema. No cy anosis. NEUROLOGICAL: Moves all extremities upon command. Strength 5/5 in all extremities. PSYCH: Normal mood, normal affect. SKIN: Warm, dry. No rash, lesions, ulcerations noted. Normal skin turgor. Course - Re-evaluation Re-evalutation: 10/26/19 10:29 She states that she feels better after receiving Bentyl, Zofran, and IV fluids. Glucose is improved with the fluids she received yesterday and her sugar is now in the 300s. Patient states that she feels better. After an unremarkable work- up yesterday, I feel the patient is stable for discharge. Will place patient on regular ondansetron, as the patient cannot afford Zofran ODT. We will also send her with a few pills of Bentyl. She is in agreement with this plan. Follow-up precautions were given. Verbal discharge instructions were given to the patient. They verbalized understanding. They are stable for discharge. - Vital Signs Vital signs: Temp Pulse Resp BP Pulse Ox 97.8 F 94 18 140/84 H 98 10/26/19 11:05 10/26/19 11:05 10/26/19 11:05 10/26/19 11:05 10/26/19 11:05 - Laboratory Result Diagrams: 10/26/19 08:40 10/26/19 08:40 Laboratory results interpreted by me: 10/26/19 10/26/19 10/26/19 08:40 08:40 08:40 WBC 14.5 H RBC 5.67 H Hgb 16.9 H Hct 47.2 H Absolute Neuts (auto) 11.2 H Sodium 131.5 L Creatinine 0.42 L Glucose 326 H Total Bilirubin 1.4 H Urine Glucose (UA) >=500 H Discharge - Discharge Clinical Impression: Vomiting Qualifiers: Vomiting type: unspecified Vomiting Intractability: unspecified Nausea presence : with nausea Qualified Code(s): R11.2 - Nausea with vomiting, unspecified Abdominal pain Qualifiers: Abdominal location: upper abdomen, unspecified Qualified Code(s): R10.10 - Upper abdominal pain, unspecified Condition: Stable Disposition: HOME, SELF-CARE Instructions: Vomiting ([facility]) Additional Instructions: You are seen today in the emergency department for abdominal cramping, nausea, and vomiting. Please take the medications as prescribed. Use the discount coupon to help you afford your medications. Follow-up with 1 of the clinics below in regards to your diabetes. Please continue your metformin. Prescriptions: Dicyclomine HCl [Bentyl 20 mg Tablet] 20 mg PO QID PRN #20 tablet PRN Reason: Ondansetron HCl 4 mg PO ASDIR PRN #15 tablet PRN Reason: Referrals: [facility] [Provider Group] - Follow up in 1 week [facility] [Provider Group] - Follow up in 1 week
[2019-10-26 08:59] LABS: ABSOLUTE BASOPHILS # (AUTO) 0.1 10^3/uL (0.0-0.2); ABSOLUTE EOSINOPHILS # (AUTO) 0.2 10^3/uL (0.0-0.6); ABSOLUTE LYMPHOCYTES (AUTO) 1.9 10^3/uL (0.5-4.7); ABSOLUTE MONOCYTES (AUTO) 1.1 10^3/uL (0.1-1.4); ABSOLUTE NEUT (AUTO) 11.2 10^3/uL (1.7-8.2); BASOPHILS % (AUTO) 0.5 % (0-2); EOSINOPHILS % (AUTO) 1.3 % (0-6); HEMATOCRIT 47.2 % (36.0-47.0); HEMOGLOBIN 16.9 g/dL (12.0-15.5); LYMPHOCYTES % (AUTO) 13.3 % (13-45); MEAN CORPUSCULAR HEMOGLOBIN 29.8 pg (27.0-33.4); MEAN CORPUSCULAR HGB CONC 35.8 g/dL (32.0-36.0); MEAN CORPUSCULAR VOLUME 83 fl (80-97); MONOCYTES % (AUTO) 7.9 % (3-13); PLATELET COUNT 306 10^3/uL (150-450); RED BLOOD COUNT 5.67 10^6/uL (3.72-5.28); RED CELL DISTRIBUTION WIDTH 13.5 % (11.5-14.0); TOTAL CELLS COUNTED % (AUTO) 100 %; WHITE BLOOD COUNT 14.5 10^3/uL (4.0-10.5)
[2019-10-26 09:13] LABS: ALBUMIN 4.1 g/dL (3.5-5.0); ALKALINE PHOSPHATASE 75 U/L (38-126); ANION GAP 10 (5-19); ASPARTATE AMINO TRANSFERASE 16 U/L (14-36); BILIRUBIN,TOTAL 1.4 mg/dL (0.2-1.3); BLOOD UREA NITROGEN 9 mg/dL (7-20); CALCIUM 9.6 mg/dL (8.4-10.2); CARBON DIOXIDE 22 mmol/L (22-30); CHLORIDE 100 mmol/L (98-107); GLUCOSE 326 mg/dL (75-110); TOTAL PROTEIN 6.9 g/dL (6.3-8.2)
[2019-10-26] MEDS ORDERED: NORMAL SALINE 1000 ML 1,000 ML IV ONE (09:26)
[2019-10-26] MEDS ORDERED: ONDANSETRON HCL INJ/PF 4 MG/2 ML SDV IV ONE (09:41)
[2019-10-26 10:09] LABS: AMORPHOUS SEDIMENT,URINE TRACE /HPF; APPEARANCE,URINE CLOUDY; BILIRUBIN,URINE NEGATIVE (NEGATIVE); COLOR,URINE AMBER; GLUCOSE, URINE >=500 mg/dL (NEGATIVE); KETONES,URINE NEGATIVE (NEGATIVE); LEUKOCYTE ESTERASE,URINE NEGATIVE (NEGATIVE); NITRITE,URINE NEGATIVE (NEGATIVE); PROTEIN,URINE NEGATIVE (NEGATIVE); URINE SPECIFIC GRAVITY 1.033; UROBILINOGEN,URINE NEGATIVE mg/dL (<2.0)
[2019-10-26 11:07] VITALS: BP 140/84
== END 2019-10-26 10:50 | disposition home or self-care (01) ==
LOC: ER 07:28
DX: R10.12 Left upper quadrant pain (principal); R10.812 Left upper quadrant abdominal tenderness; R11.2 Nausea with vomiting, unspecified; T45.0X6A Underdosing of antiallergic and antiemetic drugs, initial encounter; Z91.120 Patient's intentional underdosing of medication regimen due to financial hardship; Z91.14 Patient's other noncompliance with medication regimen; I10 Essential (primary) hypertension; J45.909 Unspecified asthma, uncomplicated; E11.9 Type 2 diabetes mellitus without complications; F17.200 Nicotine dependence, unspecified, uncomplicated
CPT/HCPCS: 99284; 96361; 96374; 36415; 83690; 85025; 80053; 81001; J3490; J2405; J7030

== ENCOUNTER → 2019-11-06 | Outpatient (CLI) | payer OTHER ==
[2019-11-06 10:50] LABS: ABSOLUTE EOSINOPHILS # (AUTO) 0.2 10^3/uL (0.0-0.6); ABSOLUTE MONOCYTES (AUTO) 0.6 10^3/uL (0.1-1.4); ABSOLUTE NEUT (AUTO) 6.8 10^3/uL (1.7-8.2); BASOPHILS % (AUTO) 0.4 % (0-2); EOSINOPHILS % (AUTO) 2.2 % (0-6); HEMATOCRIT 41.2 % (36.0-47.0); HEMOGLOBIN 14.9 g/dL (12.0-15.5); LYMPHOCYTES % (AUTO) 20.6 % (13-45); MEAN CORPUSCULAR HEMOGLOBIN 29.9 pg (27.0-33.4); MEAN CORPUSCULAR HGB CONC 36.3 g/dL (32.0-36.0); MEAN CORPUSCULAR VOLUME 82 fl (80-97); MONOCYTES % (AUTO) 5.9 % (3-13); PLATELET COUNT 331 10^3/uL (150-450); RED CELL DISTRIBUTION WIDTH 13.2 % (11.5-14.0); SEGMENTED NEUTROPHILS % (AUTO) 70.9 % (42-78); TOTAL CELLS COUNTED % (AUTO) 100 %; WHITE BLOOD COUNT 9.5 10^3/uL (4.0-10.5)
[2019-11-06 11:15] LABS: ALBUMIN 4.6 g/dL (3.5-5.0); ALKALINE PHOSPHATASE 65 U/L (38-126); AMYLASE 49 U/L (30-110); ANION GAP 7 (5-19); ASPARTATE AMINO TRANSFERASE 40 U/L (14-36); BILIRUBIN,TOTAL 1.4 mg/dL (0.2-1.3); BLOOD UREA NITROGEN 12 mg/dL (7-20); CALCIUM 9.6 mg/dL (8.4-10.2); CARBON DIOXIDE 31 mmol/L (22-30); CHLORIDE 99 mmol/L (98-107); CHOLESTEROL 172.85 mg/dL (0-200); GLUCOSE 186 mg/dL (75-110); POTASSIUM 3.6 mmol/L (3.6-5.0); TOTAL PROTEIN 7.3 g/dL (6.3-8.2); TRIGLYCERIDES 322 mg/dL (<150)
[2019-11-06 11:26] LABS: DIRECT LDL 73 mg/dL (<100)
[2019-11-06 11:30] LABS: VLDL CHOLESTEROL 64.4 mg/dL (10-31)
== END ==
LOC: CCC 09:18
PROVIDERS: ATTEND Family Medicine
DX: E11.8 Type 2 diabetes mellitus with unspecified complications (principal); R19.7 Diarrhea, unspecified
CPT/HCPCS: 36415; 80053; 80061; 82150; 83036; 84443; 85025; 87205

== ENCOUNTER 2019-11-19 09:05 | Emergency (ER) | payer SELFPAY ==
--- NOTE | 2019-11-19 10:08 | ER Document Report ---
ED General - General Chief Complaint: Knee Pain Stated Complaint: KNEE PAIN Time Seen by Provider: 11/19/19 10:08 Primary Care Provider: ARVIN ANDREWS MD [ACTIVE PROVISIONAL STAFF] - Follow up as needed KENYON COWAN MD [ACTIVE STAFF] - Follow up as needed Mode of Arrival: Ambulatory Information source: Patient TRAVEL OUTSIDE OF THE [place] IN LAST 30 DAYS: No - HPI Notes: 49-year-old female with a history of hypertension and right Reid cyst presents to the emergency room with complaints of right knee pain that has become worse over the last week. 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 Patient states she has been seen by her primary care provider and is unable to have a Reid's cyst drained to the to lack of insurance and states she is unable to afford this at this time. No new trauma, no history of DVTs. Patient states she does not take any blood pressure medication because it affects her, states that it makes her too dizzy and she does not like it. No recent surgery, history of cancers, periods of immobilization, clotting disorders, patient is not on any type of hormonal therapy. Patient has not tried any heat or icing. She reports that this is affecting her gait due to pain. Patient states she would like the Reid's cyst drained in the emergency room. Denies fevers, chills, chest pain ,palpitations, shortness of breath, dyspnea, nausea, vomiting, diarrhea, abdominal pain, hematuria,blurred vision, double vision, loss of vision, speech changes, LH, dizziness, syncope, headaches, wheezing, ST, URI, neck pain, weakness, bowel or bladder dysfunction, saddle anesthesia, numbness or tingling in bilateral upper or lower extremities equally, muscle paralysis, weakness in bilateral upper or lower extremities equally or rash. - Related Data Allergies/Adverse Reactions: No Known Allergies Allergy (Verified 11/19/19 12:25) Past Medical History - General Information source: Patient - Social History Smoking Status: Current Every Day Smoker Family History: Arthritis, CAD, CVA, DM, Hyperlipidemia, Hypertension, Malignancy, Thyroid Disfunction - Past Medical History Cardiac Medical History: Reports: Hx Hypertension Denies: Hx Congestive Heart Failure, Hx Heart Attack Pulmonary Medical History: Reports: Hx Asthma, Hx Bronchitis, Hx Pneumonia Denies: Hx COPD, Hx Tuberculosis Neurological Medical History: Denies: Hx Seizures, Hx Parkinson's Disease Endocrine Medical History: Reports: Hx Diabetes Mellitus Type 2 Renal/ Medical History: Denies: Hx End Stage Renal Disease, Hx Kidney Stones, Hx Peritoneal Dialysis GI Medical History: Denies: Hx Cirrhosis, Hx Gastroesophageal Reflux Disease, Hx Ulcer Musculoskeletal Medical History: Denies Hx Arthritis, Denies Hx Multiple Sclerosis, Reports Hx Musculoskeletal Deformity, Reports Hx Musculoskeletal Trauma Psychiatric Medical History: Reports: Hx Depression Denies: Hx Bipolar Disorder, Hx Schizophrenia Past Surgical History: Reports: Hx Cholecystectomy - Immunizations Immunizations up to date: Yes Hx Diphtheria, Pertussis, Tetanus Vaccination: Yes Review of Systems - Review of Systems Constitutional: No symptoms reported EENT: No symptoms reported Cardiovascular: No symptoms reported Respiratory: No symptoms reported Gastrointestinal: No symptoms reported Genitourinary: No symptoms reported Female Genitourinary: No symptoms reported Musculoskeletal: See HPI Skin: No symptoms reported Hematologic/Lymphatic: No symptoms reported Neurological/Psychological: No symptoms reported Physical Exam - Vital signs Vitals: Temp Pulse Resp BP Pulse Ox 97.6 F 98 22 H 176/95 H 96 11/19/19 09:08 11/19/19 09:08 11/19/19 09:08 11/19/19 09:08 11/19/19 09:08 - Notes Notes: MEDICATIONS: I agree with the patient medications as charted by the RN. ALLERGIES: I agree with the allergies as charted by the RN. PAST MEDICAL HISTORY/PAST SURGICAL HISTORY: Reviewed and agree as charted by RN. SOCIAL HISTORY: Reviewed and agree as charted by RN. FAMILY HISTORY: No significant familial comorbid conditions directly related to patient complaint EXAM: Reviewed vital signs as charted by RN. REVIEW OF SYSTEMS:reviewed vital signs by RN CONSTITUTIONAL : Denies fever, chills, or sweats. Denies recent illness. EENT: Denies eye, ear, throat, or mouth pain or symptoms. Denies nasal or sinus congestion or discharge. Denies throat, tongue, or mouth swelling or difficulty swallowing. CARDIOVASCULAR: Denies chest pain. Denies palpitations or racing or irregular heart beat. Denies ankle edema. RESPIRATORY: Denies cough, cold, or chest congestion. Denies shortness of breath, difficulty breathing, or wheezing. GASTROINTESTINAL: Denies abdominal pain or distention. Denies nausea, vomiting, or diarrhea. Denies blood in vomitus, stools, or per rectum. Denies black, tarry stools. Denies constipation. GENITOURINARY: Denies difficulty urinating, painful urination, burning, frequency, blood in urine, or discharge. FEMALE GENITOURINARY: Denies vaginal bleeding, heavy or abnormal periods, irregular periods. Denies vaginal discharge or odor. MUSCULOSKELETAL:right knee pain. Denies back or neck pain or stiffness. Denies joint pain or swelling. SKIN: Denies rash, lesions or sores. HEMATOLOGIC : Denies easy bruising or bleeding. LYMPHATIC: Denies swollen, enlarged glands. NEUROLOGICAL: Denies confusion or altered mental status. Denies passing out or loss of consciousness. Denies dizziness or lightheadedness. Denies headache. Denies weakness or paralysis or loss of use of either side. Denies problems with gait or speech. Denies sensory loss, numbness, or tingling. Denies seizures. PSYCHIATRIC: Denies anxiety or stress. Denies depression, suicidal ideation, or homicidal ideation. ALL OTHER SYSTEMS REVIEWED AND NEGATIVE. PHYSICAL EXAMINATION: GENERAL: Well-appearing, well-nourished and in no acute distress. HEAD: Atraumatic, normocephalic. EYES: Pupils equal round and reactive to light, extraocular movements intact, conjunctiva are normal. ENT: Nares patent, oropharynx clear without exudates. Moist mucous membranes. NECK: Normal range of motion, supple without lymphadenopathy LUNGS: Breath sounds clear to auscultation bilaterally and equal. No wheezes rales or rhonchi. HEART: Regular rate and rhythm without murmurs ABDOMEN: Soft, nontender, nondistended abdomen. No guarding, no rebound. No masses appreciated. Female : deferred Musculoskeletal: right knee pain on medial, posterior aspect. negative rubén's sign. anterior and posterior drawer test negative. noted pain with extension. no pain with flexion, inversion or eversion. Dtr + 2 in BLE. Full motor and sensory function to BLE equally. No open wounds. No induration or drainage. Strength 5 out of 5 bilaterally equally. Ankle examination normal. Squeeze test negative. Hip examination normal. Pulses + 2 bilaterally and equally.negative squeeze bilaterally and equally. Normal range of motion, no pitting or edema. No cyanosis. NEUROLOGICAL: Cranial nerves grossly intact. Normal speech, normal gait. Normal sensory, motor exams PSYCH: Normal mood, normal affect. SKIN: Warm, Dry, normal turgor, no rashes or lesions noted. Dictation was performed using [employer] voice recognition software Course - Re-evaluation Re-evalutation: 11/19/19 13:28 Afebrile hypertensive in no distress. X-ray negative for any acute findings per radiology, ultrasound negative for DVT, noted synovial cyst to medial aspect of posterior right knee which is in line with a Reid's cyst that is complicated. Von with patient that we cannot drain the cyst in the emergency room as this is typically an outpatient procedure and is not emergent, will give her resources and referrals to direct marketing specialist as well as primary care but she will need Reid cyst to be drained. Discussed with patient that she does need to be taking anti-inflammatories, resting, elevating. Offered crutches patient refused because she stated she was "too old and I am not coordinated". Patient stated that she would like Percocets to manage her pain however discussed with patient that per the DREW guidelines it is not recommended as well as she needs to be taking anti-inflammatories. Patient did not appear to be satisfied with this and would like to been seen by a physician which was offered to her. - Vital Signs Vital signs: Temp Pulse Resp BP Pulse Ox 98.2 F 90 18 167/83 H 96 11/19/19 12:45 11/19/19 12:45 11/19/19 12:45 11/19/19 12:45 11/19/19 12:45 Discharge - Discharge Clinical Impression: Synovial cyst of popliteal space [Reid], right knee, Hypertension Condition: Stable Disposition: HOME, SELF-CARE Instructions: Reid's Cyst ([facility]), High Blood Pressure ([facility]) Additional Instructions: High Blood Pressure When your blood pressure was taken today it was elevated. Today's reading was 176/95 Pre-hypertension/Hypertension: The patient has been informed that they may have pre-hypertension or Hypertension based on a blood pressure reading in the emergency department. I recommend that the patient call the primary care provider listed on their discharge instructions or a physician of their choice this week to arrange follow up for further evaluation of possible pre- hypertension or Hypertension. Sometimes, stress or illness causes a temporary elevation of your blood pressure. We suggest that you get your blood pressure measured three more times during the next few days to see if this is more than a temporary abnormality. If your blood pressure is greater than 150/90 on each occasion, you must have treatment. Some simple things you can do to help are: If you have blood pressure medicine but aren't using it regularly, start taking it again. Get some aerobic exercise for at least 20 minutes on a daily basis. (See your doctor before beginning a new exercise program.) Eat a low-fat diet. Lose excess weight. Avoid salty foods and avoid adding salt to any of the foods you eat. Avoid diet pills, decongestants, "energizing" herbs, and other medicines that elevate blood pressure. If left untreated, hypertension greatly enhances your risk for developing heart disease and strokes. Please don't ignore this problem. Reid's Cyst A Reid's cyst is a sack of fluid behind the knee. These cysts are common in people with arthritis or old knee injuries. Fluid in the knee joint creates a bulging sack in the "capsule" surrounding the joint. The cyst may start to hurt after activity such as squatting, running, or stair-climbing. Fluid trapped in this sack causes pain and swelling. The swelling from a Reid's cyst tends to spread down the leg. The lower leg can become red and warm. Rest your knee. Avoid activities such as squatting, lifting, climbing, and running. A knee brace may help you rest the knee. If the pain began suddenly while using the leg, use cold packs for the first two days to reduce pain and swelling. If the knee has been painful for a few days, use warm packs. Anti- inflammatory medicine is often prescribed. Once the pain has improved, gradually return to activity. Exercises to strengthen the quadriceps muscle can make the knee more stable, but you must be careful not to irritate the cyst while exercising. Call the doctor or return if you have increasing swelling or redness, fever, chills, chest pain, or shortness of breath. Return immediately for any new or worsening symptoms. Follow up with primary care provider, call tomorrow to make followup appointment. Prescriptions: Meloxicam [Mobic] 7.5 mg PO DAILY #7 tablet Meloxicam [Mobic] 7.5 mg PO DAILY #7 tablet Forms: Return to Work Referrals: KENYON COWAN MD [ACTIVE STAFF] - Follow up as needed ARVIN ANDREWS MD [ACTIVE PROVISIONAL STAFF] - Follow up as needed
[2019-11-19] MEDS ORDERED: IBUPROFEN 800 MG TABLET PO ONE (10:22)
--- NOTE | 2019-11-19 11:02 | RADIOLOGY REPORT (SQ) ---
EXAM DESCRIPTION: KNEE RIGHT 4 VIEWS IMAGES COMPLETED DATE/TIME: 11/19/2019 10:50 am REASON FOR STUDY: right knee pain COMPARISON: 11/21/2015. NUMBER OF VIEWS: Four views. TECHNIQUE: AP, lateral, and both oblique radiographic images acquired of the right knee. LIMITATIONS: None. FINDINGS: MINERALIZATION: Normal. BONES: No acute fracture or dislocation. No worrisome bone lesions. No significant osteophytes. JOINT: No effusion. No chondrocalcinosis. OTHER: No other significant finding. IMPRESSION: NEGATIVE STUDY OF THE RIGHT KNEE. NO EXPLANATION FOR PAIN. TECHNICAL DOCUMENTATION: JOB ID: [id number] 2010 [employer]- All Rights Reserved Reading location - IP/workstation name: [email or web address]
--- NOTE | 2019-11-19 12:43 | RADIOLOGY REPORT (SQ) ---
EXAM DESCRIPTION: VENOUS UNILATERAL LOWER IMAGES COMPLETED DATE/TIME: 11/19/2019 12:26 pm REASON FOR STUDY: R knee pain, hx of montague's cyst COMPARISON: 10/24/2015. TECHNIQUE: Dynamic and static espino scale and color images acquired of the right leg venous system. S elected spectral images acquired with additional compression and augmentation maneuvers. The contrala teral common femoral vein and saphenofemoral junction were also imaged. Images stored on PACS. LIMITATIONS: None. FINDINGS: COMMON FEMORAL: Normal phasicity, compression and augmentation. No visualized echogenic ma terial on espino scale. No defects on color images. FEMORAL: Normal compression and augmentation. No visualized echogenic material on espino scale. No defe cts on color images. POPLITEAL: Normal compression, augmentation. No visualized echogenic material on espino scale. No defec ts on color images. CALF VESSELS: Normal compression, augmentation. No visualized echogenic material on espino scale. No de fects on color images. GSV and SSV: Normal compression, augmentation. No visualized echogenic material on espino scale. No def ects on color images. ANY DEEP VENOUS INSUFFICIENCY: No. ANY EVIDENCE OF POPLITEAL CYST: 1.2 x 2.4 x 2.6 cm popliteal cyst containing internal debris. OTHER: No other significant finding. CONTRALATERAL COMMON FEMORAL VEIN AND SAPHENOFEMORAL JUNCTION: Normal phasicity, compression and augmentation. No visualized echogenic material on espino scale. No de fects on color images. IMPRESSION: NO EVIDENCE DVT OR SVT IN THE RIGHT LEG. COMPLEX POPLITEAL CYST. TECHNICAL DOCUMENTATION: JOB ID: [id number] 2010 [employer], [place]- All Rights Reserved Reading location - IP/workstation name: [email or web address]
[2019-11-19 12:45] VITALS: BP 167/83
== END 2019-11-19 12:45 | disposition home or self-care (01) ==
LOC: ER 09:05
DX: M71.21 Synovial cyst of popliteal space [Baker], right knee (principal); M25.561 Pain in right knee; I10 Essential (primary) hypertension; F17.200 Nicotine dependence, unspecified, uncomplicated; J45.909 Unspecified asthma, uncomplicated; E11.9 Type 2 diabetes mellitus without complications; Z79.1 Long term (current) use of non-steroidal anti-inflammatories (NSAID)
CPT/HCPCS: 93971; 99284

== ENCOUNTER 2019-12-18 23:46 | Emergency (ER) | payer SELFPAY ==
--- NOTE | 2019-12-19 00:43 | ER Document Report ---
ED Medical Screen (RME) - General Chief Complaint: Swelling of Lower Extremity Stated Complaint: FOOT & LEG PAIN/SWELLING Time Seen by Provider: 12/19/19 00:38 Mode of Arrival: Medic Information source: Patient Notes: HPI; 49-year-old female presents to the emergency room complaining of worsening bilateral pedal edema for the past week. She denies any dietary changes. No sedentary lifestyle. No recent travel. No history of cardiac disease or CHF. No history of DVTs or PEs. PE: Alert and oriented x3. Mild distress noted. Lungs: Clear to auscultation without rales, rhonchi, wheezes. Heart: Regular rate rhythm without murmurs, rubs, gallops. 2+ pitting edema bilaterally. I have greeted and performed a rapid initial assessment of this patient. A comprehensive ED assessment and evaluation of the patient, analysis of test results and completion of the medical decision making process will be conducted by additional ED providers. I have specifically instructed the patient or family members with the patient to immediately return to any nursing staff should anything change in the patient's condition or with their chief complaint. TRAVEL OUTSIDE OF THE [place] IN LAST 30 DAYS: No - Related Data Allergies/Adverse Reactions: No Known Allergies Allergy (Verified 11/19/19 12:25) Past Medical History - Social History Chew tobacco use (# tins/day): No Frequency of alcohol use: None Drug Abuse: None - Past Medical History Cardiac Medical History: Reports: Hx Hypertension Denies: Hx Congestive Heart Failure, Hx Heart Attack Pulmonary Medical History: Reports: Hx Asthma, Hx Bronchitis, Hx Pneumonia Denies: Hx COPD, Hx Tuberculosis Neurological Medical History: Denies: Hx Seizures, Hx Parkinson's Disease Endocrine Medical History: Reports: Hx Diabetes Mellitus Type 2 Renal/ Medical History: Denies: Hx End Stage Renal Disease, Hx Kidney Stones, Hx Peritoneal Dialysis GI Medical History: Denies: Hx Cirrhosis, Hx Gastroesophageal Reflux Disease, Hx Ulcer Musculoskeltal Medical History: Denies Hx Arthritis, Denies Hx Multiple Sclerosis, Reports Hx Musculoskeletal Deformity, Reports Hx Musculoskeletal Trauma Psychiatric Medical History: Reports: Hx Depression Denies: Hx Bipolar Disorder, Hx Schizophrenia Past Surgical History: Reports: Hx Cholecystectomy - Immunizations Immunizations up to date: Yes Hx Diphtheria, Pertussis, Tetanus Vaccination: Yes Physical Exam - Vital signs Vitals: Temp Pulse Resp BP Pulse Ox 98.4 F 108 H 16 179/100 H 94 12/18/19 23:54 12/18/19 23:54 12/18/19 23:54 12/18/19 23:54 12/18/19 23:54 Course - Vital Signs Vital signs: Temp Pulse Resp BP Pulse Ox 98.4 F 108 H 16 179/100 H 94 12/18/19 23:54 12/18/19 23:54 12/18/19 23:54 12/18/19 23:54 12/18/19 23:54
[2019-12-19 01:32] LABS: ABSOLUTE BASOPHILS # (AUTO) 0.1 10^3/uL (0.0-0.2); ABSOLUTE EOSINOPHILS # (AUTO) 0.2 10^3/uL (0.0-0.6); ABSOLUTE LYMPHOCYTES (AUTO) 2.2 10^3/uL (0.5-4.7); ABSOLUTE MONOCYTES (AUTO) 0.8 10^3/uL (0.1-1.4); ABSOLUTE NEUT (AUTO) 5.3 10^3/uL (1.7-8.2); BASOPHILS % (AUTO) 0.7 % (0-2); HEMATOCRIT 41.1 % (36.0-47.0); HEMOGLOBIN 14.7 g/dL (12.0-15.5); LYMPHOCYTES % (AUTO) 26.1 % (13-45); MEAN CORPUSCULAR HEMOGLOBIN 30.2 pg (27.0-33.4); MEAN CORPUSCULAR HGB CONC 35.7 g/dL (32.0-36.0); MEAN CORPUSCULAR VOLUME 85 fl (80-97); MONOCYTES % (AUTO) 8.9 % (3-13); PLATELET COUNT 265 10^3/uL (150-450); RED BLOOD COUNT 4.87 10^6/uL (3.72-5.28); RED CELL DISTRIBUTION WIDTH 13.5 % (11.5-14.0); SEGMENTED NEUTROPHILS % (AUTO) 62.3 % (42-78); TOTAL CELLS COUNTED % (AUTO) 100 %; WHITE BLOOD COUNT 8.5 10^3/uL (4.0-10.5)
[2019-12-19 01:54] LABS: ALBUMIN 4.4 g/dL (3.5-5.0); ALKALINE PHOSPHATASE 60 U/L (38-126); ANION GAP 9 (5-19); ASPARTATE AMINO TRANSFERASE 20 U/L (14-36); BLOOD UREA NITROGEN 13 mg/dL (7-20); CALCIUM 10.1 mg/dL (8.4-10.2); CARBON DIOXIDE 28 mmol/L (22-30); CHLORIDE 100 mmol/L (98-107); POTASSIUM 3.5 mmol/L (3.6-5.0); TOTAL PROTEIN 7.3 g/dL (6.3-8.2)
[2019-12-19 02:01] LABS: APPEARANCE,URINE CLEAR; BILIRUBIN,URINE NEGATIVE (NEGATIVE); COLOR,URINE YELLOW; GLUCOSE, URINE >=500 mg/dL (NEGATIVE); KETONES,URINE NEGATIVE (NEGATIVE); LEUKOCYTE ESTERASE,URINE NEGATIVE (NEGATIVE); NITRITE,URINE NEGATIVE (NEGATIVE); PROTEIN,URINE NEGATIVE (NEGATIVE); URINE SPECIFIC GRAVITY 1.033; UROBILINOGEN,URINE NEGATIVE mg/dL (<2.0)
[2019-12-19 02:04] LABS: GLUCOSE 413 mg/dL (75-110); NT PRO BNP 30 pg/mL (<125)
[2019-12-19 02:06] LABS: TROPONIN I < 0.012 ng/mL
[2019-12-19] MEDS ORDERED: ALBUTEROL SULFATE HFA (90 MCG/PUFF) 8 GM MDI (1 MDI/ER DISP) IH ONE (04:16)
--- NOTE | 2019-12-19 04:16 | ER Document Report ---
ED General - General Chief Complaint: Swelling of Lower Extremity Stated Complaint: FOOT & LEG PAIN/SWELLING Time Seen by Provider: 12/19/19 00:38 Mode of Arrival: Medic Notes: 49-year-old female presents emergency department complaining of increasing new onset swelling in her feet and legs over the past several days. Denies any shortness of breath, denies any chest pain, denies any numbness or tingling, denies any prior similar history. Patient states she recently became homeless, is no longer in air conditioning, states that she is on her feet a lot more than usual and that she is no longer eating 3 meals a day. Patient states that when she does not think she is going to be eating 3 meals a day she skips her usual diabetes medications which are pills. TRAVEL OUTSIDE OF THE [place] IN LAST 30 DAYS: No - Related Data Allergies/Adverse Reactions: No Known Allergies Allergy (Verified 11/19/19 12:25) Past Medical History - General Information source: Patient - Social History Smoking Status: Current Every Day Smoker Chew tobacco use (# tins/day): No Frequency of alcohol use: None Drug Abuse: None Family History: Arthritis, CAD, CVA, DM, Hyperlipidemia, Hypertension, Malignancy, Thyroid Disfunction - Past Medical History Cardiac Medical History: Reports: Hx Hypertension Denies: Hx Congestive Heart Failure, Hx Heart Attack Pulmonary Medical History: Reports: Hx Asthma, Hx Bronchitis, Hx Pneumonia Denies: Hx COPD, Hx Tuberculosis Neurological Medical History: Denies: Hx Seizures, Hx Parkinson's Disease Endocrine Medical History: Reports: Hx Diabetes Mellitus Type 2 Renal/ Medical History: Denies: Hx End Stage Renal Disease, Hx Kidney Stones, Hx Peritoneal Dialysis GI Medical History: Denies: Hx Cirrhosis, Hx Gastroesophageal Reflux Disease, Hx Ulcer Musculoskeletal Medical History: Denies Hx Arthritis, Denies Hx Multiple Scl erosis, Reports Hx Musculoskeletal Deformity, Reports Hx Musculoskeletal Trauma Psychiatric Medical History: Reports: Hx Depression Denies: Hx Bipolar Disorder, Hx Schizophrenia Past Surgical History: Reports: Hx Cholecystectomy - Immunizations Immunizations up to date: Yes Hx Diphtheria, Pertussis, Tetanus Vaccination: Yes Review of Systems - Review of Systems Constitutional: No symptoms reported EENT: No symptoms reported Cardiovascular: See HPI, Edema Respiratory: No symptoms reported Gastrointestinal: No symptoms reported Musculoskeletal: See HPI, Leg swelling, Ankle swelling -: Yes All other systems reviewed and negative Physical Exam - Vital signs Vitals: Temp Pulse Resp BP Pulse Ox 98.4 F 108 H 16 179/100 H 94 12/18/19 23:54 12/18/19 23:54 12/18/19 23:54 12/18/19 23:54 12/18/19 23:54 Interpretation: Hypertensive, Tachycardic - Notes Notes: GENERAL: Alert, interacts well. No acute distress. HEAD: Normocephalic, atraumatic EYES: Pupils equal, round and reactive to light, extraocular movements intact. ENT: Oral mucosa moist, tongue midline. NECK: Full range of motion, supple, trachea midline. LUNGS: No respiratory distress but she does have a wet cough with mild diffuse expiratory wheezing. HEART: Regular rate and rhythm, no murmurs, gallops, rubs. ABDOMEN: Soft, nontender, nondistended, bowel sounds present in all 4 quadrants. EXTREMITIES: Moves all 4 extremities spontaneously, 1+ pitting edema at the feet and ankles, does not pass mid tibia, radial and dorsalis pedis pulses 2/4 bilaterally. No cyanosis. NEUROLOGICAL: Alert and oriented x3, normal speech. PSYCH: Normal mood, normal affect. SKIN: Warm, Dry, normal turgor, no rashes or lesions noted. Course - Re-evaluation Re-evalutation: 12/19/19 04:23 CBC unremarkable, CMP shows elevated glucose at 413, this is not unexpected as she states she has not been taking her diabetes medications when she does not think she is can be eating 3 meals a day. We did have an extensive conversation about why it is important to continue taking all of her diabetes medications even if she is only eating 1 or 2 meals a day. Troponin is negative, proBNP is normal at 30. There is no evidence of heart failure she is not hypoxic. For her wheezing she will be given a albuterol inhaler. She is also given resources for food pantries, financial assistance, prison and housing services and health medical services. Discussed with patient that the cause of her peripheral edema does not appear to be life-threatening at this time is more likely due to increased exposure to heat, being on her feet more than usual and noncompliance with her medications. No indication for admission at this time. Discharged home. - Vital Signs Vital signs: Temp Pulse Resp BP Pulse Ox 98.4 F 108 H 16 179/100 H 94 12/18/19 23:54 12/18/19 23:54 12/18/19 23:54 12/18/19 23:54 12/18/19 23:54 - Laboratory Result Diagrams: 12/19/19 01:12 12/19/19 01:12 Laboratory results interpreted by me: 12/19/19 12/19/19 01:02 01:12 Potassium 3.5 L Glucose 413 H* Urine Glucose (UA) >=500 H - EKG Interpretation by Me Additional EKG results interpreted by me: 12/19/19 03:56 EKG shows sinus rhythm at a rate of 92, right axis deviation, normal intervals, no ST segment elevations or depressions, no T wave inversions, there is poor R wave progression per my interpretation. Discharge - Discharge Clinical Impression: Peripheral edema, Expiratory wheezing, Noncompliance w/medication treatment due to intermit use of medication Hyperglycemia due to type 2 diabetes mellitus Qualifiers: Diabetes mellitus assisted insulin use: without rodent exterminator use Qualified Code(s): E11.65 - Type 2 diabetes mellitus with hyperglycemia Condition: Stable Disposition: HOME, SELF-CARE Additional Instructions: Edema, Peripheral You have swelling in your legs. This is called peripheral edema. It can be caused by "leaky capillaries," inflammation, disease of the leg veins, or excess salt and water in your body. Edema may be a sign of heart, kidney, or liver disease. Today we did not find any evidence of heart, kidney or liver disease. Avoid prolonged standing. If you must sit for a long time, occasionally get up and walk around or elevate your legs. Support stockings can be helpful in limiting swelling. Please drink plenty of fluids and try and elevate your legs. If you are able to find a place to stay with air conditioning during the day such as the library I do recommend you spend at least an hour during the day in air conditioning. Call the doctor or return if you develop increased swelling, pain, or redness, shortness of breath, chest pain, or any other significant change. It is very important that you take all of your medications as directed. Please do not skip your diabetes medications just because you may miss 1 or 2 meals in a day. Today your blood sugar was 413 even though you did not eat all of the food you normally would. It is important that you continue to take your blood sugar medications every day.
--- NOTE | 2019-12-19 04:17 | RADIOLOGY REPORT (SQ) ---
Chest 2 view on 12/19/2019 at 3:51 AM CLINICAL INDICATION: Pedal edema COMPARISON: 10/25/2019 FINDINGS: The lungs are clear. Cardiac, hilar and mediastinal contours are within normal limits. Pulmonary vascularity is within normal limits. No bony abnormality is noted. IMPRESSION: No active disease.
[2019-12-19 05:05] VITALS: BP 173/86
--- NOTE | 2019-12-19 09:45 | EKG REPORT ---
SEVERITY:- ABNORMAL ECG - SINUS RHYTHM RIGHT AXIS DEVIATION CONSIDER ANTEROSEPTAL INFARCT : Confirmed by: Farzana Wood MD 19-Dec-2019 09:44:35
== END 2019-12-19 05:07 | disposition home or self-care (01) ==
LOC: ER 23:46
DX: M79.89 Other specified soft tissue disorders (principal); R60.9 Edema, unspecified; R06.2 Wheezing; E11.65 Type 2 diabetes mellitus with hyperglycemia; Z91.14 Patient's other noncompliance with medication regimen; F17.200 Nicotine dependence, unspecified, uncomplicated; I10 Essential (primary) hypertension; Z90.49 Acquired absence of other specified parts of digestive tract
CPT/HCPCS: 36415; 71046; 80053; 81001; 83880; 84484; 85025; 93005; 93010; 99284